=== PATIENT | male | born 1940 | race Caucasian/White ===

== ENCOUNTER → 2016-10-20 | Outpatient (CLI) | payer MEDICARE, OTHER ==
--- NOTE | 2016-10-20 16:36 | XCELERA REPORT ---
[address] [address] Lower Extremity Arterial Evaluation Name: SONALI HUTTON Age: 76 yrs Gender: Male : 1940 Patient Status: Preadmit Patient Location: Study Date: 10/20/2016 08:00 AM Procedure: A color flow and duplex scan of the lower extremity arteries was performed bilaterally with velocity and waveform anaylsis. Ankle brachial indicies performed. Reason For Study: PVD Ordering Physician: BEATRICE STANLEY Performed By: Val Douglas Measurements and Calculations Right Left WRAP CHECKER PSV 61.3 74.3 cm/sec Prox PFA PSV -44.0 46.0 cm/sec Prox SFA PSV 103.7 82.1 cm/sec Mid SFA PSV -87.7 -72.7 cm/sec Dist SFA PSV -78.6 -77.8 cm/sec Prox Pop A PSV 40.4 57.0 cm/sec Dist CAROLA PSV 17.5 38.7 cm/sec Dist PHOTOENGRAVING PROOFER APPRENTICE PSV 51.9 -49.9 cm/sec Oswaldo Pedis PSV 27.4 80.5 cm/sec Right Side Arterial Evaluation Normal velocity and biphasic waveforms noted from the Common Femoral artery to the infrageniculate vessels. Biphasic in the Deep Femoral artery. 0-19% stenosis at the Deep Femoral. Ankle Brachial index was not obtainable, non compressible. Left Side Arterial Evaluation Normal velocity and biphasic waveforms noted from the Common Femoral artery to the interior Tibial artery. Biphasic in the Deep Femoral artery. 0-19% stenosis at the Deep Femoral., and Posterior Tibial artery. Ankle Brachial index was not obtainable, non compressible. Interpretation Summary Mild hemodynamically significant lesions in the bilateral lower extremities, on duplex imaging, at rest. : BEATRICE STANLEY > Beatrice Stanley
== END ==
LOC: SP 07:17
PROVIDERS: ATTEND Surgery
DX: I73.9 Peripheral vascular disease, unspecified (principal)
CPT/HCPCS: 93925

== ENCOUNTER 2017-04-10 08:19 | Observation (INO) | payer MEDICARE, OTHER ==
[2017-04-10] MEDS ORDERED: ADENOSINE INJ/PF 6 MG/2 ML SDV IV ONE ×3 (08:30→08:42)
[2017-04-10] MEDS ORDERED: ASPIRIN 81 MG TABLET, CHEWABLE PO ONE (08:42)
[2017-04-10] MEDS ORDERED: NORMAL SALINE 1000 ML 1,000 ML IV ONE (08:43)
[2017-04-10 08:55] LABS: ABSOLUTE EOSINOPHILS # (AUTO) 0.1 10^3/uL (0.0-0.6); ABSOLUTE MONOCYTES (AUTO) 0.6 10^3/uL (0.1-1.4); ABSOLUTE NEUT (AUTO) 2.3 10^3/uL (1.7-8.2); BASOPHILS % (AUTO) 0.5 % (0-2); EOSINOPHILS % (AUTO) 1.8 % (0-6); HEMATOCRIT 42.8 % (37.9-51.0); HEMOGLOBIN 14.4 g/dL (13.5-17.0); HGB HCT DIFFERENCE 0.4; LYMPHOCYTES % (AUTO) 49.9 % (13-45); MEAN CORPUSCULAR HEMOGLOBIN 31.3 pg (27.0-33.4); MEAN CORPUSCULAR HGB CONC 33.6 g/dL (32.0-36.0); MEAN CORPUSCULAR VOLUME 93 fl (80-97); MONOCYTES % (AUTO) 9.2 % (3-13); RED CELL DISTRIBUTION WIDTH 13.8 % (11.5-14.0); SEGMENTED NEUTROPHILS % (AUTO) 38.6 % (42-78)
[2017-04-10 09:08] LABS: PROTHROMBIN TIME 12.4 SEC (11.4-15.4)
[2017-04-10 09:13] LABS: ALANINE AMINOTRANSFERASE 38 U/L (21-72); ALBUMIN 4.2 g/dL (3.5-5.0); ALKALINE PHOSPHATASE 75 U/L (38-126); ANION GAP 14 (5-19); ASPARTATE AMINO TRANSFERASE 30 U/L (17-59); BILIRUBIN,DIRECT 0.4 mg/dL (0.0-0.4); BILIRUBIN,TOTAL 0.9 mg/dL (0.2-1.3); BLOOD UREA NITROGEN 14 mg/dL (7-20); CALCIUM 9.7 mg/dL (8.4-10.2); CARBON DIOXIDE 24 mmol/L (22-30); CHLORIDE 105 mmol/L (98-107); CREATINE KINASE 240 U/L (55-170); CREATININE RESULT 1.15 mg/dL (0.52-1.25); GLUCOSE 154 mg/dL (75-110); MAGNESIUM 1.9 mg/dL (1.6-2.3); POTASSIUM 4.1 mmol/L (3.6-5.0); TOTAL PROTEIN 6.9 g/dL (6.3-8.2)
[2017-04-10 09:24] LABS: CREATINE KINASE MB 3.43 ng/mL (<4.55); TROPONIN I < 0.012 ng/mL
--- NOTE | 2017-04-10 09:24 | RADIOLOGY REPORT (SQ) ---
EXAM DESCRIPTION: CHEST SINGLE VIEW COMPLETED DATE/TIME: 04/10/2017 8:57 am REASON FOR STUDY: svt COMPARISON: 03/27/2014, 03/13/2014 EXAM PARAMETERS: NUMBER OF VIEWS: One view. TECHNIQUE: Single frontal radiographic view of the chest acquired. RADIATION DOSE: NA LIMITATIONS: None. FINDINGS: LUNGS AND PLEURA: No opacities, masses or pneumothorax. No pleural effusion. MEDIASTINUM AND HILAR STRUCTURES: No masses. Contour normal. HEART AND VASCULAR STRUCTURES: Heart normal in size. Normal vasculature. BONES: No acute findings. HARDWARE: None in the chest. OTHER: No other significant finding. IMPRESSION: NO ACUTE RADIOGRAPHIC FINDING IN THE CHEST. TECHNICAL DOCUMENTATION: JOB ID: [id number] [employer]- All Rights Reserved
--- NOTE | 2017-04-10 10:17 | ER Document Report ---
ED General - General Chief Complaint: Chest Pain Stated Complaint: CHEST PAIN Time Seen by Provider: 04/10/17 08:42 TRAVEL OUTSIDE OF THE [place] IN LAST 30 DAYS: No - HPI Patient complains to provider of: Chest pain palpitations Notes: Patient coming in today for acute onset of chest pain and palpitations. Patient states he was in his bathroom bent over felt lightheaded dizzy almost passed out and now is having significant chest pressure. Patient was found to be in SVT in triage and brought straight back. Upon my evaluation patient states episode of chest pain 1 week ago went to his PCP had an EKG done was negative. Otherwise patient states history of hypertension no other significant medical history states he is on on one blood pressure medication. Patient denies any recent travel denies any shortness of breath. is at bedside confirms patient's information. Denies fevers chills nausea vomiting diarrhea - Related Data Allergies/Adverse Reactions: No Known Drug Allergies Allergy (Verified 03/13/14 18:50) Fire Ants Allergy (Severe, Uncoded 03/13/14 18:50) Syncope Home Medications: Current Home Medications Pravastatin Sodium 40 mg PO DAILY 04/10/17 [History] Past Medical History - Social History Smoking Status: Never Smoker Frequency of alcohol use: Daily beer, 2-6 Drug Abuse: None Family History: Reviewed & Not Pertinent - Past Medical History Cardiac Medical History: Reports: Hx Hypercholesterolemia Denies: Hx Coronary Artery Disease, Hx Heart Attack, Hx Hypertension Pulmonary Medical History: Denies: Hx Asthma, Hx Bronchitis, Hx COPD, Hx Pneumonia Neurological Medical History: Denies: Hx Cerebrovascular Accident, Hx Seizures Musculoskeltal Medical History: Reports Hx Arthritis - gout no current medication Past Surgical History: Reports: Hx Abdominal Surgery - hernia repair, Hx Herniorrhaphy - Twice, Hx Orthopedic Surgery - hip replacement - Immunizations Hx Diphtheria, Pertussis, Tetanus Vaccination: Yes Hx Pneumococcal Vaccination: 03/15/14 Review of Systems - Review of Systems Constitutional: No symptoms reported EENT: No symptoms reported Cardiovascular: Chest pain Respiratory: No symptoms reported Gastrointestinal: No symptoms reported Genitourinary: No symptoms reported Male Genitourinary: No symptoms reported Musculoskeletal: No symptoms reported Skin: No symptoms reported Hematologic/Lymphatic: No symptoms reported Neurological/Psychological: No symptoms reported -: Yes All other systems reviewed and negative Physical Exam - Vital signs Vitals: Resp BP Pulse Ox 24 H 138/98 H 97 04/10/17 08:30 04/10/17 08:30 04/10/17 08:30 Interpretation: Normal - General General appearance: Appears well, Alert - HEENT Head: Normocephalic, Atraumatic Eyes: Normal Pupils: PERRL - Respiratory Respiratory status: No respiratory distress Chest status: Nontender Breath sounds: Normal Chest palpation: Normal - Cardiovascular Rhythm: Tachycardia Heart sounds: Normal auscultation Murmur: No - Abdominal Inspection: Normal Distension: No distension Bowel sounds: Normal Tenderness: Nontender Organomegaly: No organomegaly - Back Back: Normal, Nontender - Extremities General upper extremity: Normal inspection, Nontender, Normal color, Normal ROM , Normal temperature General lower extremity: Normal inspection, Nontender, Normal color, Normal ROM , Normal temperature, Normal weight bearing. No: Debbie's sign - Neurological Neuro grossly intact: Yes Cognition: Normal Orientation: AAOx4 Miladis Coma Scale Eye Opening: Spontaneous Miladis Coma Scale Verbal: Oriented Miladis Coma Scale Motor: Obeys Commands Miladis Coma Scale Total: 15 Speech: Normal Motor strength normal: LUE, RUE, LLE, RLE Sensory: Normal - Psychological Associated symptoms: Normal affect, Normal mood - Skin Skin Temperature: Warm Skin Moisture: Dry Skin Color: Normal Course - Re-evaluation Re-evalutation: 04/10/17 16:02 Patient coming in for evaluation of palpitations and chest pain. Patient was found to be in SVT vagal maneuvers were not successful in relieving the SVT therefore adenosine was given 6 then 12 are resolution of SVT. Laboratory studies not show any significant pathology EKG showed improvement of ST segment depressions. Discussed with the hospitalist will admit patient for further evaluation - Vital Signs Vital signs: Temp Pulse Resp BP Pulse Ox 97.8 F 77 18 137/79 H 98 04/10/17 11:36 04/10/17 14:00 04/10/17 11:36 04/10/17 11:36 04/10/17 11:36 - Laboratory Result Diagrams: 04/10/17 08:30 04/10/17 08:30 Laboratory results interpreted by me: 04/10/17 04/10/17 04/10/17 08:30 08:30 08:30 Seg Neutrophils % 38.6 L Lymphocytes % 49.9 H Glucose 154 H Creatine Kinase 240 H TSH 0.20 L Critical Care Note - Critical Care Note Total time excluding time spent on procedures (mins): 35 Comments: Multiple evaluation patient with SVT Discharge - Discharge Clinical Impression: SVT (supraventricular tachycardia), Near syncope Chest pain Qualifiers: Chest pain type: unspecified Qualified Code(s): R07.9 - Chest pain, unspecified Condition: Good Disposition: ADMITTED OBSERVATION Admitting Provider: Hospitalist - [facility] Admitted: Telemetry
[2017-04-10] MEDS ORDERED: NITROGLYCERIN 0.4 MG/TAB 25 TAB/BOTTLE SL PRN (10:43)
[2017-04-10 10:58] LABS: THYROID STIMULATING HORMONE 0.2 uIU/mL (0.47-4.68)
[2017-04-10] MEDS ORDERED: METOPROLOL SUCCINATE 25 MG TAB.SR.24H PO ONE (12:00)
--- NOTE | 2017-04-10 14:56 | EKG REPORT ---
SEVERITY:- ABNORMAL ECG - SUPRAVENTRICULAR TACHYCARDIA BORDERLINE LEFT AXIS DEVIATION REPOLARIZATION ABNORMALITY, PROB RATE RELATED VS ISCHEMIC : Confirmed by: Honey Ledezma 10-Apr-2017 14:55:59
--- NOTE | 2017-04-10 14:56 | EKG REPORT ---
SEVERITY:- ABNORMAL ECG - SINUS TACHYCARDIA BORDERLINE LEFT AXIS DEVIATION REPOL ABNRM SUGGESTS ISCHEMIA, DIFFUSE LEADS : Confirmed by: Honey Ledezma 10-Apr-2017 14:55:27
--- NOTE | 2017-04-11 04:42 | CONSULTATION REPORT E ---
Consultation Report NAME: SONALI HUTTON : 1940 AGE: 76Y DATE: 04/10/2017 537 A TO: BRIAN PALM M.D. FROM: AVI KINNEY M.D. Requesting Physician REASON FOR ADMISSION: Patient with chest pain/tightness, shortness of breath, and SVT. HISTORY OF PRESENT ILLNESS: The patient is a 76-year-old male with only a known history of hyperlipidemia on medication for this, states that this morning he went up to make his bed, at which time he felt dizzy and he did not feel well. He came down and had coffee and two toasts. Subsequently the patient had sudden onset of tightness in the lower front of chest and with shortness of breath, which the patient states he had difficulty taking a deep breath. This continued, the patient came the emergency room. He was found to be in SVT with a heart rate in excess of 179 beats per minute. He was given adenosine 6 mg IV push with no effect, and subsequently with 12 mg of IV adenosine the patient converted to sinus tachycardia, and then at present he is in sinus rhythm. After he converted, there is no chest tightness/shortness of breath. The patient states about a week or 2 weeks ago he had some chest pain in the left front of the chest, and it lasted for at least a day and a half, and he thought that this was due to some strenuous work that he did the previous day, and it sounds noncardiac and musculoskeletal. He denies any palpitations. He was not aware of his SVT, even though the heart rate was very high. He denies any PND, orthopnea, or leg edema. There are no TIA or CVA symptoms. PAST MEDICAL HISTORY: Positive for: 1. A history of hyperlipidemia. 2. There is no history of hypertension. No history of diabetes mellitus. No history of thyroid disease. No history of TIA or CVA. No history of anxiety or depression. There is no history of chronic kidney disease. PAST SURGICAL HISTORY: Positive for: 1. Right hip replacement. 2. Bilateral inguinal hernia. 3. And bilateral cataracts. FAMILY HISTORY: Positive for coronary artery disease and [place] in his mother. SOCIAL HISTORY: The patient does not smoke. There is no history of EtOH abuse. ADVANCED DIRECTIVES: His is a FULL CODE. His is his surrogate healthcare decision maker. MEDICATIONS: His medications include; his is on: 1. Aspirin 324 mg p.o. x1 and 81 mg p.o. daily. 2. Normal saline at 150 mL per hour. 3. Toprol XL 25 mg p.o. x1 and 25 mg p.o. daily. 4. Nitroglycerin 0.4 mg 1 tablet sublingual every 5 minutes p.r.n. REVIEW OF SYSTEMS: CONSTITUTIONAL: Denies any fevers, chills, or rigors. HEAD: No history of headaches or head injury. No dizziness. EYES: No history of amblyopia or diplopia. No history of amaurosis fugax. EARS: No history of hearing loss. No history of tinnitus. No history of recurrent ear infections. NOSE: No history of nosebleeds. No history of nasal polyps. No history of hay fever. MOUTH: No history of altered taste sensation. No history of ulcers in the mouth. No history of bleeding from the gums. THROAT: There is no odynophagia or dysphagia. There is no recurrent sore throat. SKIN: There is no pruritus. There is no yellowish discoloration of the skin. There is no psoriasis. There is no skin cancer. NECK: No neck pain. No symptoms of C-spine arthritis. No goiter. No lymphadenopathy. LUNGS: No history of asthma or COPD. No history of wheezing. No history of cough or sputum production. No history of pulmonary embolism. No history of pleuritic chest pain. No history of hemoptysis. CARDIAC: No history of coronary artery disease, GA, or anginal symptoms. No history of congestive heart failure. History of hyperlipidemia present. No history of leg edema. No history of syncope, near syncope, or dizziness. MUSCULOSKELETAL: No history of arthritis or collagen vascular disease. ENDOCRINE: No history of diabetes mellitus. No history of thyroid disease. No history of polydipsia or polyuria. No history of heat or cold intolerance. RENAL: No history of chronic kidney disease. No symptoms of UTI. No hematuria, pyuria, or dysuria. No symptoms of enlarged prostate. CENTRAL NERVOUS SYSTEM: No history of TIA or CVA. No history of seizures, headaches, or migraines. No history of gait imbalance. PSYCHIATRIC: No history of anxiety or depression. No history of suicidal ideation. No history of homicidal ideation. VASCULAR: No history of calf or buttock claudication. No history of DVT. HEMATOLOGICAL: No history of bleeding diathesis. No history of clotting disorders. PHYSICAL EXAMINATION: GENERAL: The patient is well built and well nourished, at present in no acute distress. VITAL SIGNS: He is afebrile with a temperature of 97.8 degrees Fahrenheit. Pulse is 76 beats per minute. Blood pressure is 137/79. Respirations are 18 per minute. O2 saturations are 98% on room air. HEAD: Atraumatic/normocephalic. EYES: Pupils are equal, round, regular, reactive to light/accommodation. Extraocular movements are normal. There is no conjunctival pallor. There is no scleral icterus. EAR: Tympanic membranes are intact. External auditory canals are clear. There are no lesions of the pinnae. NOSE: There is no deviated nasal septum. There is no inflammation of the nasal mucous membranes. MOUTH: The mucous membranes of the mouth are moist. Tongue is moist. There are no ulcers. There is no bleeding from the gums. THROAT: There is no redness of the oropharynx. There are no exudates. SKIN: There are no skin rashes. There are no petechia or ecchymoses. There are no skin lesions. NECK: Supple. There is no JVD. Carotids are equal. There is no bruit. There is no lymphadenopathy. There is no goiter. Trachea is central. LUNGS: Clear to auscultation and percussion. There is no chest wall tenderness. HEART: S1, S2 are heard. There is no S3 gallop. There is no S4 gallop. There is a systolic murmur in the left sternal border and the apex. There is no rub. ABDOMEN: Soft, nontender. There is no hepatosplenomegaly. Bowel sounds are well heard. EXTREMITIES: Femorals are well felt. There are no femoral bruits. Leg pulses are well felt. There is no pedal edema. There is no DVT or cellulitis. There is no cyanosis or clubbing. There is no calf tenderness. CENTRAL NERVOUS SYSTEM: The patient is conscious, awake, alert, oriented x3 with no focal deficit. PSYCHIATRIC: The patient's judgement and insight are intact. His affect is normal. DIAGNOSTIC DATA: The patient's initial EKG shows the premature ventricular tachycardia, repolarization abnormality related to rate versus ischemia. His heart rate was 179. Subsequent to the second dose of adenosine, his EKG shows a sinus rhythm, borderline left axis deviation, repolarization abnormality, ischemia diffusely. His chest x-ray is negative. I have reviewed the EKG and chest x-ray myself. The patient's sodium is 143.0, potassium 4.1, chloride 105, CO2 is 24, BUN is 14, creatinine is 1.15, GFR is greater than 60, glucose is 154, calcium is 9.7, magnesium is 1.9. The patient's liver function tests are normal. The patient's CK is 240 with a negative CPK-MB of 3.43. His first set of troponin-I is less than 0.012, and hence negative. His total protein is 6.9. Albumin is 4.2. His TSH is 0.20. Free T4 is 1.14. His D-dimer is 0.30. His PT is 12.4. His INR is 0.87. The patient's white count is 6,000, his hemoglobin is 14.4, hematocrit is 42.8, and his platelet count is 237,000. IMPRESSION: 1. SVT, terminated with adenosine, most likely AV maikol re-entry tachycardia. 2. Chest pain/tightness, resolved with the patient's SVT being terminated. The first set of cardiac enzymes are negative. 3. Shortness of breath, most likely secondary to increased heart rate. A chest x-ray is negative, and D-dimer is less than 0.030. 4. Abnormal EKG, still with evidence of ischemia by EKG. 5. Hyperlipidemia. 6. Multiple CAD risk factors; namely age, hyperlipidemia, and family history of coronary artery disease. RECOMMENDATIONS: Continue the patient on beta devin. Continue aspirin. Will get serial EKGs and enzymes, and if the cardiac enzymes are negative, we will schedule the patient for IV Lexiscan cardiac stress test in the a.m. Also, we will check an echocardiogram. All of the above discussed with the patient and the patient's in detail. His medications have been reviewed. Note, the patient was seen around 8:45 a.m. and 50 minutes spent on this patient with more than 50% of the time spent on direct patient care, also discussed with the other caregiving providers on the case. Medical decision making is of highly complex nature in view of the need for further workup of the patient's presence or absence of coronary artery disease and also abnormal EKG, although the first set of cardiac enzymes are negative. We will recheck the patient's EKG in the a.m. and also recheck the patient's troponin-I in the a.m. I will follow with you. DICTATING PHYSICIAN: BRIAN PALM M.D. [id number] PHY#: [id number] ID: [id number] JOB#: [id number] ACCT: [id number] cc:BRIAN PALM M.D. >
[2017-04-11 04:58] LABS: CHOLESTEROL 160.02 mg/dL (0-200); Direct HDL 58 mg/dL (>40); TRIGLYCERIDES 134 mg/dL (<150)
[2017-04-11] MEDS ORDERED: REGADENOSON INJ 0.4 MG/5 ML DISP.SYRIN IV ONE (05:00)
[2017-04-11 05:09] LABS: DIRECT LDL 79 mg/dL (<100)
--- NOTE | 2017-04-11 09:22 | CONSULTATION REPORT E ---
Consultation Report NAME: SONALI HUTTON : 1940 AGE: 76Y DATE: 04/10/2017 537 A TO: BRIAN PALM M.D. FROM: AVI KINNEY M.D. Requesting Physician REASON FOR CONSULTATION: Patient with chest pain, shortness of breath, and SVT. HISTORY OF PRESENT ILLNESS: Patient is a 67-year-old male with a known history of hyperlipidemia with no other medical problems, states that this morning he went up and made his bed, at which time the patient states he had some dizziness and did not feel right and did not feel well. He came down, had some coffee, and subsequently had some sudden onset of chest tightness in the center of the chest with shortness of breath with difficulty taking a deep breath. This lasted for some time, and he came to the emergency room, where he was found to be in SVT at a rate of 179 beats per minute. He was given adenosine 6 mg with no effect, and subsequently with 12 mg of adenosine, the patient converted to sinus rhythm. At present, the patient denies any chest pain or discomfort. There is no shortness of breath. He states that about 1 to 2 weeks ago he had chest pain which lasted the whole day and the next day. This seemed to be more musculoskeletal. He has not had a stress test. He denies any PND, orthopnea, or arrhythmias. He has no history of TIA or CVA. PAST MEDICAL HISTORY: Positive for: 1. Bilateral inguinal hernia surgery. 2. Bilateral hip replacement. 3. Bilateral cataract surgeries. ALLERGIES: The patient has none known allergies. SOCIAL HISTORY: The patient does not smoke. There is no history of EtOH abuse. FAMILY HISTORY: Positive for coronary artery disease and [place] in his brother. ADVANCED DIRECTIVES: The patient is a FULL CODE. His is the surrogate healthcare decision maker. DICTATING PHYSICIAN: BRIAN PALM M.D. [id number] PHY#: [id number] ID: [id number] JOB#: [id number] ACCT: [id number] cc:BRIAN PALM M.D. >
[2017-04-11] MEDS ORDERED: METOPROLOL SUCCINATE 25 MG TAB.SR.24H PO SCH (10:00)
[2017-04-11] MEDS ORDERED: ASPIRIN 81 MG TABLET, ENT COATED PO SCH (10:00)
[2017-04-11 11:54] VITALS: BP 124/58
--- NOTE | 2017-04-11 19:02 | DRAGON STRESS TEST REPORT ---
Intravenous Lexiscan Cardiolite stress test using single photon emmision computerized tomography. Date of procedure: 04/11/2017. Ordering Provider: Dr. Natasha Elliott. Patient's status: In Patient Indication: Chest pain /tightness, shortness of breath and SVT. Coronary risk factors: Age, hyperlipidemia, and family history of coronary artery disease Resting EKG: Sinus Rhythm. Within Normal Limits. Stress EKG: No changes of ischemia. The patient had no chest pain or discomfort, and there were no arrhythmias seen. Reason for termination: Protocol. Conclusions: Normal EKG and hemodynamic response to IV Lexiscan. Nuclear data: At rest the patient was given 10.23 millicuries of technetium 99m sestamibi injected intravenously. As per protocol rest non gated SPECT images were obtained. Subsequently the patient was given intravenous Lexiscan at a dose of 0.4 mg in 5 mL intravenously, followed by flush with normal saline. Subsequently the stress dose of 35.0 millicuries of technetium 99m sestamibi was injected intravenously. As per protocol stress gated images were obtained. Nuclear interpretation: Review of images showed that this is a poor quality study with motion artifact and bowel contamination artifact of the inferior wall. In spite of this all segments of the myocardium had normal perfusion at rest, and normal perfusion post stress with IV Lexiscan. All segments of the myocardium had normal motion, contraction, and thickening by gated study. T. I D. ratio was normal at 1.00. Computer read rest, and stress left ventricular ejection fraction were 49 %, and 47 %, respectively. Visually both the stress and rest ejection fractions were normal, and greater than 55%. Conclusion: 1. There is no scintigraphic evidence of Lexiscan induced myocardial ischemia. 2. There is no scintigraphic evidence of myocardial infarction/scar. 3. Check echo for LV ejection fraction correlation. Recommendations: Aggressive risk factor modification, and treating the underlying co- morbidities. MTDD
--- NOTE | 2017-04-11 23:37 | PROGRESS NOTE E ---
Progress Note NAME: SONALI HUTTON : 1940 AGE: 76Y DATE: 04/11/2017 ROOM: 537 SUBJECTIVE: The patient denies any further chest pain or discomfort. There is no chest tightness. There is no PND or orthopnea. There is no further recurrence of SVT. There is no syncope or near syncope. He remains in sinus rhythm. OBJECTIVE: GENERAL: The patient is well-built and well-nourished in no acute distress. VITAL SIGNS: He is afebrile with a temperature of 97.5 degrees Fahrenheit. Pulse is 69 beats/minute. Blood pressure 124/58. Respirations are 18 per minute. O2 sats are 99% on room air. HEENT: Head is normocephalic, atraumatic. Eyes: Pupils are equal, round, regular, reactive to light and accommodation. Extraocular movements are normal. There is no conjunctival pallor. There is no scleral icterus. Ears: Tympanic membranes are intact. External auditory canals are clear. There are no lesions in the pinna. ENT is negative. NECK: Supple. There is no JVD. Carotids are equal. There is no bruit. There is no goiter. There is no lymphadenopathy. Trachea is central. LUNGS: Clear to auscultation and percussion. CHEST: There is no chest wall tenderness. HEART: S1/S2 is heard. There is no S3 gallop. There is no S4 gallop. There is a systolic murmur in the left sternal border and the apex. There is no rub. ABDOMEN: Soft and nontender. There is no hepatosplenomegaly. Bowel sounds are well heard. EXTREMITIES: Femorals are well felt. There are no femoral bruits. Leg pulses are well felt. There is no pedal edema. There is no DVT or cellulitis. There is no cyanosis or clubbing. There is no calf tenderness. PRIZE FIGHTER: The patient is conscious, awake, alert, oriented x3 with no focal deficits. PSYCHIATRIC: The patient's judgment and insight are intact. His affect is normal. DIAGNOSTICS: Note that the patient underwent an IV Lexiscan Cardiolite stress test this morning and he had no chest pain or discomfort. There is no EKG changes. It is a difficult study to interpret due to motion artifact and bowel contamination artifact of the inferior wall. In spite of this, all segments of the myocardium was normal perfusion with rest and normal perfusion post stress with Lexiscan. All segments of the myocardium are normal. Motion, contraction and thickening for gated study. The computed ejection fraction at rest was 49% and stress was 47%. Visually the LV ejection fraction was greater than 55%. This has been discussed with the patient. The patient's hemoglobin A1c is 5.6. His triglycerides are 134. His LDL cholesterol is 79 and his HDL cholesterol is good at 58. IMPRESSION: 1. SUPRAVENTRICULAR TACHYCARDIA, TERMINATED WITH *------* NO RECURRENCE. 2. CHEST PAIN, TIGHTNESS, MOST LIKELY NONCARDIAC, MOST LIKELY SECONDARY TO SVT. THE PATIENT'S STRESS TEST HAS BEEN NEGATIVE. 3. SHORTNESS OF BREATH, RESOLVED POST SVT. MOST LIKELY SVT IS THE CAUSE OF THIS. 4. ABNORMAL EKG. At present today the EKG after stress test was within normal limits. 5. HYPERLIPIDEMIA. RECOMMENDATIONS: In view of the patient's stress test showing an ejection fraction of 49% at rest and 47% with exertion, we will check an echocardiogram for LV ejection fraction correlation. Note, will followup the patient in the office. 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 Also, we will get an echocardiogram for LV ejection fraction correlation. His medications are being reviewed. Continue beta-devin. Continue his RESHMA inhibitor. Continue anti-lipid medication. Continue his other medication. Continue his amlodipine. Continue aspirin. The patient has been given my telephone number. He will call me if there are any problems. We will followup the patient in the office. We will arrange for a 30 day Event monitor. His medications have been reviewed. Discussed the stress test with the patient and with the other caregiving providers on the case. We will discharge the patient and we will have the patient followup in the office. The patient has been given my cell phone number. Note in spite of negative stress test, the medical decision-making is of moderate complexity. DICTATING PHYSICIAN: BRIAN PALM M.D. [id number] PHY#: [id number] ID: [id number] JOB#: [id number] ACCT: [id number] cc: >
[2017-04-12] MEDS ORDERED: ASPIRIN 81 MG TABLET, ENT COATED PO SCH (10:00)
--- NOTE | 2017-04-17 22:44 | PDOC H&P ---
History of Present Illness Admission Date/PCP: 04/10/17 10:43 DYANA PETERS MD Patient complains of: SOB History of Present Illness: SONALI HUTTON is a 76 year old male who states that he had been battling a cold earlier this week but was otherwise dong well. . Patient states he woke up at 6 am and fed the dogs. He ate breakfast then went upstairs to make the bed. He bent over and then stood up. When he stood up he became dizzy. He could not catch his breathe. He didn't feel well, so he came to the ED. He was found to have a HR in the 200s. Patient states that in March, he had and episode of chest pain. He went to see Dr. Delacruz at that time. Patient states that his evaluation was negative at that time. Patient denies any history of AK. Patient was given adenosine x 2 in the ED. BMP and CHM unremarkable. Hospitalist called to bring patient in for Observation for ACS rule out and cardiology evaluation. Past Medical History Cardiac Medical History: Reports: Hyperlipidema Denies: Coronary Artery Disease, Myocardial Infarction, Hypertension Pulmonary Medical History: Denies: Asthma, Bronchitis, Chronic Obstructive Pulmonary Disease (COPD), Pneumonia Neurological Medical History: Denies: Seizures Musculoskeltal Medical History: Reports: Arthritis - gout no current medication Psychiatric Medical History: Denies: Depression Hematology: Denies: Anemia Past Surgical History Past Surgical History: Reports: Herniorrhaphy - Twice, Orthopedic Surgery - hip replacement Social History Smoking Status: Never Smoker Frequency of Alcohol Use: Occasional Hx Recreational Drug Use: No Drugs: None Hx Prescription Drug Abuse: No - Advance Directive Resuscitation Status: Full Code Family History Family History: Malignancy Parental Family History Reviewed: Yes Children Family History Reviewed: Yes Sibling(s) Family History Reviewed.: Yes Medication/Allergy Home Medications: Pravastatin Sodium 40 mg PO DAILY 04/10/17 Metoprolol Succinate [Toprol Xl 25 mg Tab.sr] 25 mg PO DAILY 30 Days #30 tab.sr.24h 04/11/17 Allergies/Adverse Reactions: No Known Drug Allergies Allergy (Verified 03/13/14 18:50) Fire Ants Allergy (Severe, Uncoded 03/13/14 18:50) Syncope Review of Systems Constitutional: ABSENT: chills, fever(s), headache(s), weight gain, weight loss Eyes: ABSENT: visual disturbances Ears: ABSENT: hearing changes Cardiovascular: ABSENT: chest pain, dyspnea on exertion, edema, orthropnea, palpitations Respiratory: PRESENT: dyspnea. ABSENT: cough, hemoptysis Gastrointestinal: ABSENT: abdominal pain, constipation, diarrhea, hematemesis, hematochezia, nausea, vomiting Genitourinary: ABSENT: dysuria, hematuria Musculoskeletal: PRESENT: other - calve pain. ABSENT: joint swelling Integumentary: ABSENT: rash, wounds Neurological: ABSENT: abnormal gait, abnormal speech, confusion, dizziness, focal weakness, syncope Psychiatric: ABSENT: anxiety, depression, homidical ideation, suicidal ideation Endocrine: ABSENT: cold intolerance, heat intolerance, polydipsia, polyuria Hematologic/Lymphatic: ABSENT: easy bleeding, easy bruising Physical Exam Vital Signs: Vitals Temp: 97.8 Pulse 59 BP 118/71 RR 15 Pulse ox 97 room air General appearance: PRESENT: no acute distress, well-developed, well-nourished Head exam: PRESENT: normocephalic Eye exam: PRESENT: EOMI. ABSENT: scleral icterus Ear exam: PRESENT: normal external ear exam Mouth exam: PRESENT: moist Neck exam: ABSENT: carotid bruit, JVD, lymphadenopathy, thyromegaly Respiratory exam: PRESENT: clear to auscultation roldan. ABSENT: rales, rhonchi, wheezes Cardiovascular exam: PRESENT: RRR, +S1, +S2. ABSENT: diastolic murmur, rubs, systolic murmur Pulses: PRESENT: normal dorsalis pedis pul, other - foot cool to touch Vascular exam: PRESENT: normal capillary refill GI/Abdominal exam: PRESENT: normal bowel sounds, soft. ABSENT: distended, guarding, mass, organolmegaly, rebound, tenderness Rectal exam: PRESENT: deferred Extremities exam: PRESENT: full ROM. ABSENT: calf tenderness, clubbing, pedal edema Neurological exam: PRESENT: alert, awake, oriented to person, oriented to place , oriented to time, oriented to situation, CN II-XII grossly intact. ABSENT: motor sensory deficit Psychiatric exam: PRESENT: appropriate affect, normal mood. ABSENT: homicidal ideation, suicidal ideation Skin exam: PRESENT: dry, intact, warm. ABSENT: cyanosis, rash Results Laboratory Results: 11/05/17 11/05/17 11/05/17 12:42 15:00 20:10 Troponin I Cancelled 0.098 0.092 04/11/17 02:35 Troponin I 0.074 Impressions: Chest X-Ray 04/10/17 08:42 IMPRESSION: NO ACUTE RADIOGRAPHIC FINDING IN THE CHEST. Assessment & Plan - Diagnosis (1) SVT (supraventricular tachycardia) Is this a current diagnosis for this admission?: Yes Plan: Patient given adenosine in the ED. Patient now in NSR,but will continue on telemetry. Will continue to trend troponins. Will start patient on low dose beta devin. Will check lipids in the am. Will order Echo and consult cardiology. Patient may benefit from a ischemic work up. (2) Gout Qualifiers: Gout site: foot Is this a current diagnosis for this admission?: Yes Plan: Not acute attack noted at this time. (3) Hypercholesteremia Is this a current diagnosis for this admission?: Yes Plan: Continue statin - Time Time Spent: 30 to 50 Minutes Medications reviewed and adjusted accordingly: Yes Anticipated discharge: Home Within: within 24 hours
--- NOTE | 2017-04-17 22:51 | PDOC DISCHARGE SUMMARY ---
General - Admit/Disc Date/PCP Admission Date/Primary Care Provider: 04/10/17 10:43 DYANA PETERS MD Discharge Date: 04/11/17 - Discharge Diagnosis (1) SVT (supraventricular tachycardia) Is this a current diagnosis for this admission?: Yes (2) Gout Is this a current diagnosis for this admission?: Yes (3) Hypercholesteremia Is this a current diagnosis for this admission?: Yes - Additional Information Resuscitation Status: Full Code Discharge Diet: Cardiac Discharge Activity: Activity As Tolerated, Balance Activity w/Rest Home Medications: Pravastatin Sodium 40 mg PO DAILY 04/10/17 Metoprolol Succinate [Toprol Xl 25 mg Tab.sr] 25 mg PO DAILY 30 Days #30 tab.sr.24h 04/11/17 History of Present Illness History of Present Illness: SONALI HUTTON is a 76 year old male who presented wit complaint of not being able to catch his breathe. Patient was found to be in SVT and was given adenosine x 2. Hospital Course Hospital Course: Patient presented to the ED in SVT and was given adenoside. He was later on started on a beta devin. Patient remained in NSR while being monitored on telemetry. Patient later on had a troponin leak but denied chest pain. This troponin leak was most likely due to demand ischemia during the rapid heart rate. They did trend down. Patient has a stress test which did not show any ischemia. Patient is to follow up with Dr. Eden, cardiology, and at that time a cardiac echo will be completed. Patient was continued on his statin for his hyperlipidemia. Patient has history of gout but was not have any attack. Patient remained stable and was discharge home. Physical Exam Vital Signs: Temp Pulse Resp BP Pulse Ox 97.5 F 69 18 124/58 L 99 04/11/17 13:05 04/11/17 13:05 04/11/17 13:05 04/11/17 13:05 04/11/17 13:05 General appearance: PRESENT: no acute distress, well-developed, well-nourished Head exam: PRESENT: normocephalic Eye exam: PRESENT: EOMI. ABSENT: scleral icterus Ear exam: PRESENT: normal external ear exam Mouth exam: PRESENT: moist Neck exam: ABSENT: carotid bruit, JVD, lymphadenopathy, thyromegaly Respiratory exam: PRESENT: clear to auscultation roldan. ABSENT: rales, rhonchi, wheezes Cardiovascular exam: PRESENT: RRR. ABSENT: diastolic murmur, rubs, systolic murmur Pulses: PRESENT: normal dorsalis pedis pul Vascular exam: PRESENT: normal capillary refill GI/Abdominal exam: PRESENT: normal bowel sounds, soft. ABSENT: distended, guarding, mass, organolmegaly, rebound, tenderness Rectal exam: PRESENT: deferred Extremities exam: PRESENT: full ROM. ABSENT: calf tenderness, clubbing, pedal edema Neurological exam: PRESENT: alert, awake, oriented to person, oriented to place , oriented to time, oriented to situation, CN II-XII grossly intact. ABSENT: motor sensory deficit Psychiatric exam: PRESENT: appropriate affect, normal mood. ABSENT: homicidal ideation, suicidal ideation Skin exam: PRESENT: dry, intact, warm. ABSENT: cyanosis, rash Results Laboratory Results: 04/10/17 04/10/17 04/10/17 12:42 15:00 20:10 Troponin I Cancelled 0.098 0.092 04/11/17 02:35 Troponin I 0.074 Impressions: Chest X-Ray 04/10/17 08:42 IMPRESSION: NO ACUTE RADIOGRAPHIC FINDING IN THE CHEST. Qualifiers PATEINT BEING DISCHARGED WITH ANY OF THE FOLLOWING DIAGNOSIS?: No Plan Discharge Plan: Patient will continue on beta devin and follow up with Dr. Eden on discharge for cardiac echo. Time Spent: Less than 30 Minutes
== END 2017-04-11 13:47 | disposition home or self-care (01) ==
LOC: ER 08:19 → 5 10:43 → UNDOADMOB 10:50 → EH 10:50 → 5 11:33 → EH 11:33
PROVIDERS: ADMIT Pediatrics; ATTEND Pediatrics
DX: I47.1 Supraventricular tachycardia (principal); M10.9 Gout, unspecified; E78.00 Pure hypercholesterolemia, unspecified; R94.31 Abnormal electrocardiogram [ECG] [EKG]; Z82.49 Family history of ischemic heart disease and other diseases of the circulatory system; Z96.643 Presence of artificial hip joint, bilateral; Z79.899 Other long term (current) drug therapy
CPT/HCPCS: 93005; 99285; 36415 ×2; 84439; 82553; 82550; 83735; 84443; 85025; 85610; 80053; 84484 ×2; 83036; 85379; 80061; 93017; 71010; 78452; 93010; G0378 ×3; A9500; J2785; A9270 ×2; J3490; J7030; J0153; Q9969

== ENCOUNTER 2017-12-12 01:25 | Emergency (ER) | payer MEDICARE, OTHER ==
[2017-12-12] MEDS ORDERED: MORPHINE SULFATE 10 MG/ML INJ IV ONE (01:49)
[2017-12-12 02:22] LABS: ABSOLUTE BASOPHILS # (AUTO) 0.1 10^3/uL (0.0-0.2); ABSOLUTE EOSINOPHILS # (AUTO) 0.4 10^3/uL (0.0-0.6); ABSOLUTE NEUT (AUTO) 5.5 10^3/uL (1.7-8.2); BASOPHILS % (AUTO) 0.7 % (0-2); EOSINOPHILS % (AUTO) 4.3 % (0-6); HEMATOCRIT 38.3 % (37.9-51.0); HEMOGLOBIN 13.1 g/dL (13.5-17.0); MEAN CORPUSCULAR HEMOGLOBIN 32.1 pg (27.0-33.4); MEAN CORPUSCULAR HGB CONC 34.1 g/dL (32.0-36.0); MEAN CORPUSCULAR VOLUME 94 fl (80-97); MONOCYTES % (AUTO) 11.1 % (3-13); PLATELET COUNT 242 10^3/uL (150-450); RED BLOOD COUNT 4.08 10^6/uL (4.35-5.55); SEGMENTED NEUTROPHILS % (AUTO) 61.9 % (42-78); TOTAL CELLS COUNTED % (AUTO) 100 %
[2017-12-12 02:24] LABS: ANION GAP 10 (5-19); BLOOD UREA NITROGEN 17 mg/dL (7-20); CALCIUM 9.4 mg/dL (8.4-10.2); CARBON DIOXIDE 25 mmol/L (22-30); CHLORIDE 106 mmol/L (98-107); GLUCOSE 105 mg/dL (75-110); POTASSIUM 4.4 mmol/L (3.6-5.0); SODIUM 140.5 mmol/L (137-145)
--- NOTE | 2017-12-12 02:30 | RADIOLOGY REPORT (SQ) ---
EXAM DESCRIPTION: CT abdomen and pelvis without contrast December 1:26 AM CDT CLINICAL HISTORY: 77 years, Male, left flank pain COMPARISON: CT abdomen and pelvis with contrast March 2014. TECHNIQUE: Volumetric CT acquisition was performed through the abdomen and pelvis. Images in the axial and coronal planes were presented for interpretation This exam was performed according to our departmental dose-optimization program, which includes automated exposure control, adjustment of the mA and/or kV according to patient size and/or use of iterative reconstruction technique. FINDINGS: The visualized portions of the lung bases are clear. The heart is normal in size with moderate coronary artery calcifications Within the upper abdomen, the liver and spleen are normal in size and morphology. The gallbladder is surgically absent. The intra/extrahepatic biliary tree is normal in appearance. The pancreas and adrenal glands are normal. The right kidney is normal in size and the right ureter is normal in course and caliber. There are no right renal calculi, distal obstructing stones, or evidence of hydronephrosis/hydroureter. The left kidney is normal in size and the left ureter is normal in course and caliber. There are no left renal calculi, distal obstructing stones, or evidence of hydronephrosis/hydroureter. The stomach and small intestines are within normal limits without evidence of bowel dilation or wall thickening. The appendix is well-visualized and normal, best seen on coronal image 35 inferior to the cecum. The colon is stool filled and unremarkable. There are moderate descending and sigmoid colonic diverticula without associated wall thickening or inflammatory changes. Within the pelvis, the bladder and rectum are normal. The prostate is age-appropriate There are no pathologically enlarged inguinal, retroperitoneal, portacaval, or mesenteric lymph nodes. The soft tissue structures of the abdominal wall are normal. There are multilevel degenerative changes throughout the lumbar spine most pronounced at the L4/L5 and L5/S1 levels with disc space narrowing and facet hypertrophy There is right hip arthroplasty hardware noted. The abdominal aorta and its primary branches are normal in course and caliber. Limited evaluation of the venous structures demonstrates no gross abnormalities. IMPRESSION: 1. No acute intra-abdominal process. 2. Diverticulosis without evidence of diverticulitis. 3. Status post cholecystectomy. 4. Stable right hip arthroplasty hardware. 5. Degenerative changes of the lower lumbar spine.
--- NOTE | 2017-12-12 02:44 | ER Document Report ---
ED General - General Chief Complaint: Abdominal Pain Stated Complaint: ABDOMINAL PAIN Time Seen by Provider: 12/12/17 01:43 Notes: Patient is a pleasant 77-year-old male presents with complaints of left flank pain. He says it started around 6 PM and has continued throughout the day and night. No vomiting. No fevers. No dysuria. He does have some urinary frequency which is chronic most likely related to prostate hypertrophy. No diarrhea. No blood in the stool. She still had pain like this before. He takes metoprolol for blood pressure. He is otherwise healthy. No history of kidney stones. TRAVEL OUTSIDE OF THE [place] IN LAST 30 DAYS: No - Related Data Allergies/Adverse Reactions: No Known Drug Allergies Allergy (Verified 03/13/14 18:50) Fire Ants Allergy (Severe, Uncoded 03/13/14 18:50) Syncope Past Medical History - Social History Smoking Status: Never Smoker Frequency of alcohol use: None Drug Abuse: None Family History: Malignancy - Past Medical History Cardiac Medical History: Reports: Hx Hypercholesterolemia Denies: Hx Coronary Artery Disease, Hx Heart Attack, Hx Hypertension Pulmonary Medical History: Denies: Hx Asthma, Hx Bronchitis, Hx COPD, Hx Pneumonia Neurological Medical History: Denies: Hx Cerebrovascular Accident, Hx Seizures Musculoskeltal Medical History: Reports Hx Arthritis - gout no current medication Psychiatric Medical History: Denies: Hx Depression Past Surgical History: Reports: Hx Abdominal Surgery - hernia repair, Hx Herniorrhaphy - Twice, Hx Orthopedic Surgery - hip replacement - Immunizations Hx Diphtheria, Pertussis, Tetanus Vaccination: Yes Hx Pneumococcal Vaccination: 03/15/14 Review of Systems - Review of Systems Notes: My Normal Review Basic REVIEW OF SYSTEMS: CONSTITUTIONAL : Denies fever, chills, or sweats. Denies recent illness. RESPIRATORY: Denies cough, cold, or chest congestion. Denies shortness of breath, difficulty breathing, or wheezing. GASTROINTESTINAL: Left flank pain. Denies nausea, vomiting, or diarrhea. GENITOURINARY: Denies difficulty urinating, painful urination, burning, frequency, or blood in urine. MUSCULOSKELETAL: Denies neck or back pain or joint pain or swelling. SKIN: Denies rash or skin lesions. NEUROLOGICAL: Denies altered mental status or loss of consciousness. Denies headache. Denies weakness or paralysis or loss of use of either side. Denies problems with gait or speech. Denies sensory or motor loss. ALL OTHER SYSTEMS REVIEWED AND NEGATIVE. Physical Exam - Vital signs Vitals: Temp Pulse Resp BP Pulse Ox 98.6 F 80 20 137/73 H 95 12/12/17 01:12/12/17 01:12/12/17 01:12/12/17 01:12/12/17 01:31 - Notes Notes: General Appearance: Well nourished, alert, cooperative, no acute distress, mild to moderate obvious discomfort. Vitals: reviewed, See vital signs table. Eyes: PERRL, EOMI, Conjuctiva clear Mouth: No decreasd moisture Lungs: No wheezing, No rales, No rhonci, No accessory muscle use, good air exchange bilaterally. Heart: Normal rate, Regular rythm, No murmur, no rub Abdomen: Normal BS, soft, No rigidity, No reproducible abdominal or flank tenderness to palpation., No guarding, no rebound, no abdominal masses, no organomegaly Extremities: strength 5/5 in all extremities, good pulses in all extremities, no swelling or tenderness in the extremities, no edema. Skin: warm, dry, appropriate color, no rash Neuro: speech clear, oriented x 3, normal affect, responds appropriately to questions. Course - Re-evaluation Re-evalutation: 12/15/17 06:12 Initially suspected patient had a kidney stone based on location of his pain and the fact has not made much worse with palpation. However, the patient's CT scan was negative for kidney stone. He has no signs of infection. He does not have any anterior abdominal pain to palpation. Pain likely could be secondary to like a pulled muscle. I informed patient has not 100% clear exactly what is causing his pain. Denies any signs of any life-threatening or emergent condition at this time; however, he should have a low threshold to return to ER if he has fevers, intractable pain, vomiting, or feels unwell. Patient agrees with plan will be discharged home. Dictation of this chart was performed using voice recognition software; therefore, there may be some unintended grammatical errors. - Vital Signs Vital signs: Temp Pulse Resp BP Pulse Ox 98.6 F 62 16 131/73 H 96 12/12/17 04:00 12/12/17 04:00 12/12/17 04:00 12/12/17 04:00 12/12/17 04:00 - Laboratory Result Diagrams: 12/12/17 02:03 12/12/17 02:03 Laboratory results interpreted by me: 12/12/17 12/12/17 02:03 02:45 RBC 4.08 L Hgb 13.1 L Urine Blood SMALL H Discharge - Discharge Clinical Impression: Abdominal pain Qualifiers: Abdominal location: left lower quadrant Qualified Code(s): R10.32 - Left lower quadrant pain Condition: Good Disposition: HOME, SELF-CARE Additional Instructions: The exact cause of your pain is not 100% clear. Your CT scan does not show any concerning findings. Your urine testing as well as your blood work does not show any concerning findings either. I suspect your pain could be related to a pulled muscle or pinched nerve. Even though your workup is negative I still want you to have a very low threshold to return to the ER immediately if you have worsening pain, fevers, vomiting, or change in location of pain. If you are still having pain after 24-48 hours, you must return to the ER or see your doctor immediately for reevaluation. Prescriptions: Tramadol HCl [Ultram 50 mg Tablet] 50 mg PO Q6HP PRN #12 tablet PRN Reason: Forms: Return to Work Referrals: DYANA PETERS MD [Primary Care Provider] - 12/13/17
[2017-12-12 03:08] LABS: APPEARANCE,URINE CLEAR; BILIRUBIN,URINE NEGATIVE (NEGATIVE); COLOR,URINE YELLOW; GLUCOSE, URINE NEGATIVE (NEGATIVE); KETONES,URINE NEGATIVE (NEGATIVE); LEUKOCYTE ESTERASE,URINE NEGATIVE (NEGATIVE); NITRITE,URINE NEGATIVE (NEGATIVE); PROTEIN,URINE NEGATIVE (NEGATIVE); URINE SPECIFIC GRAVITY 1.015; UROBILINOGEN,URINE NEGATIVE mg/dL (<2.0)
[2017-12-12 04:13] VITALS: BP 131/73
== END 2017-12-12 04:11 | disposition home or self-care (01) ==
LOC: ER 01:25
DX: R10.32 Left lower quadrant pain (principal); R35.0 Frequency of micturition; I10 Essential (primary) hypertension; Z79.899 Other long term (current) drug therapy
CPT/HCPCS: 99284; 96374; 36415; 85025; 80048; 81001; 76380; J2270

== ENCOUNTER 2017-12-22 17:37 | Emergency (ER) | payer MEDICARE, OTHER ==
[2017-12-22 17:42] VITALS: BP 133/58
--- NOTE | 2017-12-22 17:59 | ER Document Report ---
HPI - HPI Patient complains to provider of: Twisted left foot 2 days ago Onset: Other - 2 days ago Onset/Duration: Sudden, Worse Pain Level: 3 Context: 77-year-old male twisted his left foot and has been walking on it for 2 days. It is swollen and painful in the dorsal lateral left foot. No history of gout. Associated Symptoms: None Exacerbated by: Walking Relieved by: Denies Similar symptoms previously: No Recently seen / treated by doctor: No - ROS ROS below otherwise negative: Yes Systems Reviewed and Negative: Yes All other systems reviewed and negative - REPRODUCTIVE Reproductive: DENIES: : - MUSCULOSKELETAL Musculoskeletal: REPORTS: Extremity pain Past Medical History - General Information source: Patient - Social History Smoking Status: Unknown if Ever Smoked Frequency of alcohol use: None Drug Abuse: None Lives with: Spouse/Significant other Family History: Malignancy Patient has suicidal ideation: No Patient has homicidal ideation: No - Past Medical History Cardiac Medical History: Reports: Hx Hypercholesterolemia Musculoskeletal Medical History: Reports Hx Arthritis - gout no current medication Past Surgical History: Reports: Hx Abdominal Surgery - hernia repair, Hx Herniorrhaphy - Twice, Hx Orthopedic Surgery - hip replacement - Immunizations Hx Diphtheria, Pertussis, Tetanus Vaccination: Yes Hx Pneumococcal Vaccination: 03/15/14 Vertical Provider Document - CONSTITUTIONAL Agree With Documented VS: Yes Exam Limitations: No Limitations - INFECTION CONTROL TRAVEL OUTSIDE OF THE [place] IN LAST 30 DAYS: No - MUSCULOSKELETAL/EXTREMETIES Musculoskeletal/Extremeties: MAEW, FROM, Tender - Dorsal lateral left foot and at the base of the fifth metatarsal, Edema - [place] mildly warm, not look like cellulitis Notes: 2+ DP - NEURO Level of Consciousness: Alert Motor/Sensory: No Motor Deficit, No Sensory Deficit - DERM Integumentary: No Rash Course - Re-evaluation Re-evalutation: 12/22/17 18:53 Negative per radiologist I spoke with the radiologist that read the reading about what I was seeing on 1 that is definitely not a fracture. The amount that the patient is limping and the pain in the base of the fifth metatarsal I will have him see orthopedics for follow-up tomorrow and advised him to use the walker that he has at home. 12/22/17 18:53 - Vital Signs Vital signs: Temp Pulse Resp BP Pulse Ox 98.7 F 81 18 133/58 H 95 12/22/17 17:41 12/22/17 17:41 12/22/17 17:41 12/22/17 17:41 12/22/17 17:41 Procedures - Immobilization Left Foot Time completed: 18:56 Pre-Proc Neuro Vasc Exam: Normal Immobilizer type: Post-op shoe Performed by: PCT Post-Proc Neuro Vasc Exam: Normal Alignment checked and good: Yes Discharge - Discharge Clinical Impression: Left foot injury, Base of the fifth metatarsal tenderness Condition: Good Disposition: HOME, SELF-CARE Instructions: Post-Op Shoe ([facility]), Sprain ([facility]) Additional Instructions: Use the walker at home to get off of the foot Postop shoe Tylenol for pain Call the orthopedic doctor tomorrow morning for follow-up appointment Since she do not have any kidney problems or sores you can take 400 mg of Advil up to 3 times a day for pain Referrals: FRACISCO MARIE MD [ACTIVE STAFF] - Follow up tomorrow (call for follow up)
--- NOTE | 2017-12-22 18:32 | RADIOLOGY REPORT (SQ) ---
EXAM DESCRIPTION: FOOT LEFT COMPLETE COMPLETED DATE/TIME: 12/22/2017 6:20 pm REASON FOR STUDY: twisted 2 days ago COMPARISON: None. NUMBER OF VIEWS: Three views. TECHNIQUE: AP, lateral and oblique radiographic images acquired of the left foot. LIMITATIONS: None. FINDINGS: MINERALIZATION: Normal. BONES: No acute fracture or dislocation. No worrisome bone lesions. JOINTS: No effusions. SOFT TISSUES: No soft tissue swelling. No foreign body. OTHER: No other significant finding. IMPRESSION: NO RADIOGRAPHIC EVIDENCE OF ACUTE INJURY. TECHNICAL DOCUMENTATION: JOB ID: [id number] [id number] 2010 [employer]- All Rights Reserved Reading location - IP/workstation name: [email or web address]
== END 2017-12-22 18:58 | disposition home or self-care (01) ==
LOC: ER 17:37
DX: S99.922A Unspecified injury of left foot, initial encounter (principal); M79.672 Pain in left foot; X50.0XXA Overexertion from strenuous movement or load, initial encounter
CPT/HCPCS: 99283

== ENCOUNTER 2018-01-24 08:01 | Emergency (ER) | payer MEDICARE, OTHER ==
[2018-01-24 08:08] VITALS: BP 145/69
[2018-01-24] MEDS ORDERED: CEPHALEXIN 500 MG CAPSULE PO ONE (08:25)
--- NOTE | 2018-01-24 08:26 | ER Document Report ---
ED General - General Mode of Arrival: Ambulatory Information source: Patient <OLGA PEPE - Last Filed: 01/24/18 15:39> - General TRAVEL OUTSIDE OF THE [place] IN LAST 30 DAYS: No <MARI SANCHEZ - Last Filed: 01/24/18 15:45> - General Chief Complaint: Swelling Stated Complaint: ARM SWELLING Time Seen by Provider: 01/24/18 08:13 Notes: Patient is a 72-year-old male presenting to the emergency department complaining of left arm swelling and itchiness onset around 0000 this morning. Patient states that he woke up to his left arm itching and noticed some redness and swelling. He states he put hydrocortisone on his left arm and took 2 Benadryl but the symptoms were not relieved. Patient states that he scratched his wrist under his wrist watch band approximately 1 week ago. Patient denies any trouble breathing, fevers, pain with movement or numbness or tingling. (AFSHINOLGA JESSICA) - Related Data Allergies/Adverse Reactions: No Known Drug Allergies Allergy (Verified 03/13/14 18:50) Fire Ants Allergy (Severe, Uncoded 03/13/14 18:50) Syncope Past Medical History - General Information source: Patient - Social History Smoking Status: Never Smoker Cigarette use (# per day): No Chew tobacco use (# tins/day): No Frequency of alcohol use: Heavy - 3-4 beers a day Family History: Malignancy - Past Medical History Cardiac Medical History: Reports: Hx Hypercholesterolemia Past Surgical History: Reports: Hx Abdominal Surgery, Hx Herniorrhaphy, Hx Orthopedic Surgery <OLGA PEPE - Last Filed: 01/24/18 15:39> - Social History Family History: Malignancy - Past Medical History Cardiac Medical History: Reports: Hx Hypercholesterolemia Denies: Hx Coronary Artery Disease, Hx Heart Attack, Hx Hypertension Pulmonary Medical History: Denies: Hx Asthma, Hx Bronchitis, Hx COPD, Hx Pneumonia Neurological Medical History: Denies: Hx Cerebrovascular Accident, Hx Seizures Renal/ Medical History: Denies: Hx Peritoneal Dialysis Musculoskeletal Medical History: Reports Hx Arthritis - gout no current medication Psychiatric Medical History: Denies: Hx Depression Past Surgical History: Reports: Hx Abdominal Surgery - hernia repair, Hx Herniorrhaphy - Twice, Hx Orthopedic Surgery - hip replacement - Immunizations Hx Diphtheria, Pertussis, Tetanus Vaccination: Yes Hx Pneumococcal Vaccination: 03/15/14 <MARI SANCHEZ - Last Filed: 01/24/18 15:45> Review of Systems - Review of Systems Constitutional: No symptoms reported EENT: No symptoms reported Cardiovascular: No symptoms reported Respiratory: No symptoms reported Gastrointestinal: No symptoms reported Genitourinary: No symptoms reported Male Genitourinary: No symptoms reported Musculoskeletal: See HPI Skin: See HPI Hematologic/Lymphatic: No symptoms reported Neurological/Psychological: No symptoms reported -: Yes All other systems reviewed and negative <OLGA PEPE - Last Filed: 01/24/18 15:39> Physical Exam <OLGA PEPE - Last Filed: 01/24/18 15:39> <MARI SANCHEZ - Last Filed: 01/24/18 15:45> - Vital signs Vitals: Temp Pulse Resp BP Pulse Ox 97.9 F 71 20 145/69 H 98 01/24/18 08:06 01/24/18 08:06 01/24/18 08:06 01/24/18 08:06 01/24/18 08:06 - Notes Notes: GENERAL: Alert, interacts well. No acute distress. HEAD: Normocephalic, atraumatic. EYES: Pupils equal, round, and reactive to light. Extraocular movements intact. ENT: Oral mucosa moist, tongue midline. NECK: Full range of motion. Supple. Trachea midline. LUNGS: No respiratory distress. EXTREMITIES: Moves all 4 extremities spontaneously. Area of erythema and swelling to the dorsal aspect of left arm beginning at approximately the level of MCP joints 3 and 4 and extends proximally to approximately 3 inches below the elbow, not circumferential however it does extend to the volar aspect. Small abrasion to the dorsal aspect of left wrist under where wrist watch would lay. Not tender to palpation. FROM, no pain with ROM. Radial pulses 2/4 bilaterally. NEUROLOGICAL: Alert and oriented x3. Normal speech. PSYCH: Normal affect, normal mood. SKIN: Warm, dry. Negative Nikolsky's sign. (OLGA PEPE) Course <OLGA PEPE - Last Filed: 01/24/18 15:39> <MARI SANCHEZ - Last Filed: 01/24/18 15:45> - Re-evaluation Re-evalutation: 01/24/18 08:25 Consistent with cellulitis, patient is not a diabetic, there is no evidence of abscess, there is no evidence of necrotizing fasciitis, full range of motion and muscle strength is intact, sensation is intact. Patient will be started on Keflex and discharged home, encouraged to keep the arm elevated and return should he develop fevers or increasing erythema. (MARI SANCHEZ) - Vital Signs Vital signs: Temp Pulse Resp BP Pulse Ox 97.9 F 71 20 145/69 H 98 01/24/18 08:06 01/24/18 08:06 01/24/18 08:06 01/24/18 08:06 01/24/18 08:06 Discharge <OLGA PEPE - Last Filed: 01/24/18 15:39> <MAIR SANCHEZ - Last Filed: 01/24/18 15:45> - Discharge Clinical Impression: Left arm cellulitis Condition: Stable Disposition: HOME, SELF-CARE Additional Instructions: Cellulitis You have an infection of your skin and underlying soft tissues called cellulitis. This is due to bacteria, which can enter through any break in the skin, or even through an irritated hair follicle. Untreated, cellulitis will usually worsen. Antibiotics are required. Usually, warm packs or warm soaks, and elevation of the infected area are recommended. You should start getting better within 24 to 36 hours. Most infections respond quickly to the right medication. Follow-up care is important, however, to check for abscess (boil) formation, unsuspected foreign body, or resistant infection. If you develop fever, chills, or if the area of infection is becoming rapidly more swollen or painful, call the doctor at once. Prescriptions: Cephalexin Monohydrate [Keflex 500 mg Capsule] 500 mg PO Q6H 7 Days capsule Referrals: DYANA PETERS MD [Primary Care Provider] - Follow up as needed Scribe Attestation: 01/24/18 15:45 I personally performed the services described in the documentation, reviewed and edited the documentation which was dictated to the scribe in my presence, and it accurately records my words and actions. (MARI SANCHEZ) Scribe Documentation - Scribe Written by Rika:: Rika Sharma, 01/24/2018 09:10 acting as scribe for :: Elsa <OLGA PEPE - Last Filed: 01/24/18 15:39>
== END 2018-01-24 08:40 | disposition home or self-care (01) ==
LOC: ER 08:01
DX: L03.114 Cellulitis of left upper limb (principal); M79.89 Other specified soft tissue disorders
CPT/HCPCS: 99283; A9270

== ENCOUNTER 2018-01-25 07:36 | Emergency (ER) | payer MEDICARE, OTHER ==
--- NOTE | 2018-01-25 09:34 | ER Document Report ---
ED General - General Chief Complaint: Hand Swelling Stated Complaint: HAND SWELLING Time Seen by Provider: 01/25/18 09:23 TRAVEL OUTSIDE OF THE [place] IN LAST 30 DAYS: No - HPI Notes: Patient is a 77-year-old male no significant past medical history presents to the ED complaining of continued left forearm redness and swelling with swelling extending to the dorsal left hand x1-2 days. Patient states that he was evaluated yesterday and was placed on Keflex for cellulitis. Patient states that overall his redness has improved as it did encompass the anterior forearm as well, but is now maintained to the posterior forearm. Patient states that the swelling was primarily to his forearm, but has started to incorporate the posterior hand. Patient states he does not have any significant pain or discomfort otherwise. He has been taking his antibiotic as directed. Patient states that overall his symptoms have improved aside from the swelling to the posterior hand. He is eating and drinking without any difficulties. He is urinating normally. Denies any drug allergies. Patient states that he is scheduled to see his primary care doctor later this afternoon. Denies any headache, fever, URI, sore throat, chest pain, palpitations, syncope, cough, shortness of breath, wheeze, dyspnea, abdominal pain, nausea/vomiting/diarrhea, urinary retention, dysuria, hematuria, loss of control of bowel or bladder, numbness/tingling, saddle anesthesia, muscle paralysis/weakness. - Related Data Allergies/Adverse Reactions: No Known Drug Allergies Allergy (Verified 01/25/18 07:42) Fire Ants Allergy (Severe, Uncoded 01/25/18 07:42) Syncope Past Medical History - Social History Smoking Status: Never Smoker Chew tobacco use (# tins/day): No Frequency of alcohol use: Occasional Drug Abuse: None Family History: Malignancy Patient has suicidal ideation: No Patient has homicidal ideation: No - Past Medical History Cardiac Medical History: Reports: Hx Hypercholesterolemia Denies: Hx Coronary Artery Disease, Hx Heart Attack, Hx Hypertension Pulmonary Medical History: Denies: Hx Asthma, Hx Bronchitis, Hx COPD, Hx Pneumonia Neurological Medical History: Denies: Hx Cerebrovascular Accident, Hx Seizures Renal/ Medical History: Denies: Hx Peritoneal Dialysis Musculoskeletal Medical History: Reports Hx Arthritis - gout no current medication Psychiatric Medical History: Denies: Hx Depression Past Surgical History: Reports: Hx Abdominal Surgery - hernia repair, Hx Herniorrhaphy - Twice, Hx Orthopedic Surgery - hip replacement - Immunizations Hx Diphtheria, Pertussis, Tetanus Vaccination: Yes Hx Pneumococcal Vaccination: 03/15/14 Review of Systems - Review of Systems -: Yes All other systems reviewed and negative Physical Exam - Vital signs Vitals: Temp Pulse Resp BP Pulse Ox 98.0 F 67 16 146/77 H 98 01/25/18 07:47 01/25/18 07:47 01/25/18 07:47 01/25/18 07:47 01/25/18 07:47 - Notes Notes: PHYSICAL EXAMINATION: GENERAL: Well-appearing, well-nourished and in no acute distress. LUNGS: Breath sounds clear to auscultation bilaterally and equal. No wheezes rales or rhonchi. HEART: Regular rate and rhythm without murmurs, rubs, gallops. Musculoskeletal: left UE: FROM to passive/active. Strength 5+/5. N/v intact distal. Extremities: Peripheral pulses 2+. Capillary refill less than 3 seconds. NEUROLOGICAL: Normal speech, normal gait. Normal sensory, motor exams PSYCH: Normal mood, normal affect. SKIN: Left forearm: there is mild erythema to the posterior forearm with mild swelling noted. + trace pitting edema to the posterior left hand w/o erythema. No other induration, fluctuance, streaks, or discharge noted. Non-tender. Erythema has noted improvement from the markings placed yesterday. Course - Re-evaluation Re-evalutation: 01/25/18 10:57 Patient is an afebrile, well-hydrated, 70 7/10 to the ED with cellulitis to the left forearm which does seem to be improving from his visit yesterday. Vitals are acceptable without any significant tachycardia, tachypnea, or hypoxia. PE is otherwise unremarkable. Venous ultrasound of the left upper extremity was unremarkable for acute pathology at this time. Patient is nontoxic-appearing and is tolerating p.o. without difficulties. Low suspicion for any sepsis, meningitis, severe dehydration, respiratory compromise, DVT, or other systemic emergent condition at this time. Patient is aware that condition can change from initial presentation and he needs to monitor symptoms closely and seek medical attention with any acute changes. No other labs or imaging warranted at this time based on H&P. Patient to continue taking his Keflex as directed and to monitor symptoms closely. Erythemic borders were marked. Conservative measures otherwise for symptoms. Recheck with your PCM as scheduled later today. Return to the ED with any worsening/concerning symptoms otherwise as reviewed in discharge. Patient is in agreement. - Vital Signs Vital signs: Temp Pulse Resp BP Pulse Ox 98.0 F 67 16 146/77 H 98 01/25/18 07:47 01/25/18 07:47 01/25/18 07:47 01/25/18 07:47 01/25/18 07:47 Discharge - Discharge Clinical Impression: Cellulitis of left forearm Condition: Stable Disposition: HOME, SELF-CARE Additional Instructions: Keep the skin clean Wash with soap and water Tylenol/ibuprofen if needed Triple antibiotic ointment daily Take medication as directed Monitor for any worsening symptoms Recheck with your PCM today as scheduled Return to the ED with any worsening symptoms and/or development of fever, headache, chest pain, palpitations, syncope, shortness of breath, trouble breathing, abdominal pain, n/v/d, abscess, purulent discharge, red streaks, worsening swelling, or other worsening symptoms that are concerning to you. Forms: Elevated Blood Pressure Referrals: DYANA PETERS MD [Primary Care Provider] - 01/25/18
[2018-01-25 11:08] VITALS: BP 138/73
--- NOTE | 2018-01-25 11:13 | RADIOLOGY REPORT (SQ) ---
EXAM DESCRIPTION: VENOUS UNILATERAL UPPER COMPLETED DATE/TIME: 01/25/2018 11:05 am REASON FOR STUDY: LUQ swelling COMPARISON: None. TECHNIQUE: Dynamic and static pastor scale and color images acquired of the left arm venous system. Se lected spectral images acquired with additional compression and augmentation maneuvers. The contralat eral subclavian vein and internal jugular vein were also imaged. Images stored on PACS. LIMITATIONS: None. FINDINGS: INTERNAL JUGULAR VEIN: Normal phasicity, compression, augmentation. No visualized echogeni c material on pastor scale. No defects on color images. Comparison opposite side normal. SUBCLAVIAN VEIN: Normal compression, augmentation. No visualized echogenic material on pastor scale. No defects on color images. AXILLARY VEIN: Normal compression, augmentation. No visualized echogenic material on pastor scale. No d efects on color images. BRACHIAL VEIN: Normal compression, augmentation. No visualized echogenic material on pastor scale. No d efects on color images. BASILIC VEIN: Normal compression, augmentation. No visualized echogenic material on pastor scale. No de fects on color images. CEPHALIC VEIN: Normal compression, augmentation. No visualized echogenic material on pastor scale. No d efects on color images. OTHER: No other significant finding. CONTRALATERAL SUBCLAVIAN VEIN AND INTERNAL JUGULAR VEIN: Normal phasicity, compression and augmentation. No visualized echogenic material on pastor scale. No de fects on color images. IMPRESSION: NO EVIDENCE DVT OR SVT IN THE LEFT ARM. TECHNICAL DOCUMENTATION: JOB ID: [id number] [employer]- All Rights Reserved Reading location - IP/workstation name: [email or web address]
== END 2018-01-25 11:08 | disposition home or self-care (01) ==
LOC: ER 07:36
DX: L03.114 Cellulitis of left upper limb (principal); E78.00 Pure hypercholesterolemia, unspecified; Z96.643 Presence of artificial hip joint, bilateral
CPT/HCPCS: 93971; 99284

== ENCOUNTER 2018-02-23 07:50 | Emergency (ER) | payer MEDICARE, OTHER ==
[2018-02-23] MEDS ORDERED: CEPHALEXIN 500 MG CAPSULE PO ONE (08:26)
[2018-02-23] MEDS ORDERED: DIPH/PERTUSS(ACELL)/TETANUS VAC/PF 0.5 ML SYR (>=10YO) IM ONE (08:26)
--- NOTE | 2018-02-23 08:46 | ER Document Report ---
HPI - HPI Patient complains to provider of: Left forearm redness Onset: Other - 2 days Onset/Duration: Persistent Pain Level: 0 Context: Patient presents complaining of left forearm redness with swelling. Patient denies any fever. Patient has been cleaning up ER debris recently and does have some abrasions to bilateral upper extremities. Patient states he had a similar episode of erythema to left forearm several months ago and was placed on antibiotics for this. Patient states that he has symptoms very similar to that previous episode today. Associated Symptoms: Other - Left forearm erythema. denies: Fever Exacerbated by: Denies Relieved by: Denies Similar symptoms previously: Yes Recently seen / treated by doctor: No - ROS ROS below otherwise negative: Yes Systems Reviewed and Negative: Yes All other systems reviewed and negative - CONSTITUTIONAL Constitutional: DENIES: Fever - RESPIRATORY Respiratory: DENIES: Trouble Breathing, Coughing - REPRODUCTIVE Reproductive: DENIES: : - MUSCULOSKELETAL Musculoskeletal: REPORTS: Swelling - DERM Skin Color: Erythema Skin Problems: Abrasion Past Medical History - General Information source: Patient - Social History Smoking Status: Never Smoker Frequency of alcohol use: Occasional Drug Abuse: None Lives with: Family Family History: Malignancy Patient has suicidal ideation: No Patient has homicidal ideation: No - Past Medical History Cardiac Medical History: Reports: Hx Hypercholesterolemia Denies: Hx Coronary Artery Disease, Hx Heart Attack, Hx Hypertension Pulmonary Medical History: Denies: Hx Asthma, Hx Bronchitis, Hx COPD, Hx Pneumonia Neurological Medical History: Denies: Hx Cerebrovascular Accident, Hx Seizures Renal/ Medical History: Denies: Hx Peritoneal Dialysis Musculoskeletal Medical History: Reports Hx Arthritis - gout no current medication Psychiatric Medical History: Denies: Hx Depression Past Surgical History: Reports: Hx Abdominal Surgery - hernia repair, Hx Herniorrhaphy - Twice, Hx Orthopedic Surgery - hip replacement - Immunizations Hx Diphtheria, Pertussis, Tetanus Vaccination: Yes Hx Pneumococcal Vaccination: 03/15/14 Vertical Provider Document - CONSTITUTIONAL Agree With Documented VS: Yes Exam Limitations: No Limitations General Appearance: WD/WN, No Apparent Distress - INFECTION CONTROL TRAVEL OUTSIDE OF THE [place] IN LAST 30 DAYS: No - HEENT HEENT: Atraumatic, Normocephalic - NECK Neck: Normal Inspection, Supple - RESPIRATORY Respiratory: Breath Sounds Normal, No Respiratory Distress - CARDIOVASCULAR Cardiovascular: Regular Rate, Regular Rhythm Pulses: Normal: Radial - BACK Back: Normal Inspection - MUSCULOSKELETAL/EXTREMETIES Musculoskeletal/Extremeties: MAKATHY FROM, Non-Tender, Edema - Trace swelling to left forearm - NEURO Level of Consciousness: Awake, Alert, Appropriate - DERM Integumentary: Warm, Dry Notes: Mild erythema to left forearm. Patient with abrasion to left forearm and abrasion to right thumb. Scattered ecchymosis to bilateral upper extremities Course - Vital Signs Vital signs: Temp Pulse Resp BP Pulse Ox 97.4 F 77 14 128/64 H 97 02/23/18 07:55 02/23/18 07:55 02/23/18 07:55 02/23/18 07:55 02/23/18 07:55 Discharge - Discharge Clinical Impression: Abrasion Cellulitis Qualifiers: Site of cellulitis: extremity Site of cellulitis of extremity: upper extremity Laterality: left Qualified Code(s): L03.114 - Cellulitis of left upper limb Condition: Stable Disposition: HOME, SELF-CARE Instructions: Abrasions ([facility]), Cellulitis ([facility]), Cephalexin ([facility]), Tetanus Immunization Given ([facility]) Additional Instructions: Return immediately for any new or worsening symptoms Followup with your primary care provider, call tomorrow to make a followup appointment Follow-up with dermatology for recheck, call today for an appointment Prescriptions: Cephalexin Monohydrate [Keflex 500 mg Capsule] 500 mg PO Q6H 5 Days capsule Referrals: DYANA PETERS MD [Primary Care Provider] - Follow up as needed DERMATOLOGY [Provider Group] - Follow up as needed
[2018-02-23 09:20] VITALS: BP 132/70
== END 2018-02-23 09:20 | disposition home or self-care (01) ==
LOC: ER 07:50
DX: S40.812A Abrasion of left upper arm, initial encounter (principal); S40.811A Abrasion of right upper arm, initial encounter; L03.114 Cellulitis of left upper limb; M79.89 Other specified soft tissue disorders; W22.8XXA Striking against or struck by other objects, initial encounter
CPT/HCPCS: 99283; 90471; 90715; A9270

== ENCOUNTER 2018-03-19 11:18 | Emergency (ER) | payer MEDICARE, OTHER ==
[2018-03-19 11:30] VITALS: BP 114/67
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
[2018-03-19] MEDS ORDERED: DIPHENHYDRAMINE HCL 50 MG CAPSULE PO ONE (11:37)
[2018-03-19] MEDS ORDERED: FAMOTIDINE 20 MG TABLET PO ONE (11:37)
== END 2018-03-19 12:32 | disposition home or self-care (01) ==
LOC: ER 11:18
DX: T63.421A Toxic effect of venom of ants, accidental (unintentional), initial encounter (principal); L29.9 Pruritus, unspecified; R21 Rash and other nonspecific skin eruption
CPT/HCPCS: 99282; A9270 ×2

== ENCOUNTER 2018-12-29 10:16 | Emergency (ER) | payer MEDICARE, OTHER ==
[2018-12-29 11:32] LABS: ABSOLUTE EOSINOPHILS # (AUTO) 0.1 10^3/uL (0.0-0.6); ABSOLUTE LYMPHOCYTES (AUTO) 2.3 10^3/uL (0.5-4.7); ABSOLUTE MONOCYTES (AUTO) 0.7 10^3/uL (0.1-1.4); ABSOLUTE NEUT (AUTO) 3.9 10^3/uL (1.7-8.2); BASOPHILS % (AUTO) 0.4 % (0-2); EOSINOPHILS % (AUTO) 0.8 % (0-6); HEMATOCRIT 45.6 % (37.9-51.0); HEMOGLOBIN 15.2 g/dL (13.5-17.0); LYMPHOCYTES % (AUTO) 32.9 % (13-45); MEAN CORPUSCULAR HGB CONC 33.4 g/dL (32.0-36.0); MEAN CORPUSCULAR VOLUME 96 fl (80-97); MONOCYTES % (AUTO) 9.9 % (3-13); PLATELET COUNT 252 10^3/uL (150-450); RED BLOOD COUNT 4.76 10^6/uL (4.35-5.55); RED CELL DISTRIBUTION WIDTH 14.6 % (11.5-14.0); TOTAL CELLS COUNTED % (AUTO) 100 %; WHITE BLOOD COUNT 6.9 10^3/uL (4.0-10.5)
[2018-12-29 11:46] LABS: ALANINE AMINOTRANSFERASE 35 U/L (21-72); ALBUMIN 4.8 g/dL (3.5-5.0); ALKALINE PHOSPHATASE 77 U/L (38-126); ANION GAP 10 (5-19); ASPARTATE AMINO TRANSFERASE 36 U/L (17-59); BILIRUBIN,DIRECT 0.3 mg/dL (0.0-0.4); BILIRUBIN,TOTAL 1.2 mg/dL (0.2-1.3); BLOOD UREA NITROGEN 17 mg/dL (7-20); CALCIUM 10.3 mg/dL (8.4-10.2); CARBON DIOXIDE 25 mmol/L (22-30); CHLORIDE 105 mmol/L (98-107); CREATINE KINASE 256 U/L (55-170); GLUCOSE 94 mg/dL (75-110); POTASSIUM 4.2 mmol/L (3.6-5.0); TOTAL PROTEIN 7.7 g/dL (6.3-8.2)
--- NOTE | 2018-12-29 11:53 | RADIOLOGY REPORT (SQ) ---
EXAM DESCRIPTION: CHEST SINGLE VIEW COMPLETED DATE/TIME: 12/29/2018 11:42 am REASON FOR STUDY: chest pain COMPARISON: None. NUMBER OF VIEWS: One view. TECHNIQUE: Single frontal radiographic image of the chest acquired. LIMITATIONS: None. FINDINGS: LUNGS AND PLEURA: Stable appearance. MEDIASTINUM AND HILAR STRUCTURES: Stable heart size and mediastinal structures. HEART AND VASCULAR STRUCTURES: Stable appearance. SUPPORT DEVICES: Appropriate location without change. BONES: No acute findings. OTHER: No other significant finding. IMPRESSION: STABLE APPEARANCE OF THE CHEST. SUPPORT DEVICES UNCHANGED. TECHNICAL DOCUMENTATION: JOB ID: [id number] [employer]- All Rights Reserved Reading location - IP/workstation name: [email or web address]
[2018-12-29 12:00] LABS: CREATINE KINASE MB 3.18 ng/mL (<4.55)
--- NOTE | 2018-12-29 12:02 | ER Document Report ---
ED General - General Chief Complaint: Dizziness Stated Complaint: DIZZY Time Seen by Provider: 12/29/18 11:10 Primary Care Provider: DYANA PETERS MD [Primary Care Provider] - Follow up as needed TRAVEL OUTSIDE OF THE [place] IN LAST 30 DAYS: No - HPI Notes: Patient is a 78-year-old male who presents to the emergency department for evaluation of chest pain and difficulty breathing. He states that he woke up at about 1:30 in the morning. He described a substernal pain that did not radiate. He states it feels like an ache. He felt short of breath. He admits he does have a history of sleep apnea. He has been unable to tolerate CPAP, has not had one for about a year. He states he got up and got a shower. He felt short of breath at that point as well. He states he has had 2 episodes of this chest pain, that lasted about a minute. He really cannot describe it for me. He denies this sensation that his breathing got worse during these episodes. He states he felt somewhat dizzy as well. Has been taking medications as prescribed. Again he is pain-free at this time. He states he does feel mildly dyspneic at rest. - Related Data Allergies/Adverse Reactions: No Known Drug Allergies Allergy (Verified 03/19/18 11:20) Fire Ants Allergy (Severe, Uncoded 03/19/18 11:20) Syncope Past Medical History - General Information source: Patient - Social History Smoking Status: Former Smoker - Quit in 1971 Frequency of alcohol use: Heavy - Drinks 6-12 beers daily for several decades Drug Abuse: None Family History: Malignancy - Past Medical History Cardiac Medical History: Reports: Hx Hypercholesterolemia, Hx Hypertension, Other - SVT Denies: Hx Coronary Artery Disease, Hx Heart Attack Pulmonary Medical History: Denies: Hx Asthma, Hx Bronchitis, Hx COPD, Hx Pneumonia Neurological Medical History: Denies: Hx Cerebrovascular Accident, Hx Seizures Renal/ Medical History: Denies: Hx Peritoneal Dialysis Musculoskeletal Medical History: Reports Hx Arthritis - gout no current medication Psychiatric Medical History: Denies: Hx Depression Past Surgical History: Reports: Hx Abdominal Surgery - hernia repair, Hx Cholecystectomy, Hx Herniorrhaphy - Twice, Hx Orthopedic Surgery - hip replacement - Immunizations Hx Diphtheria, Pertussis, Tetanus Vaccination: Yes Hx Pneumococcal Vaccination: 03/15/14 Review of Systems - Review of Systems Constitutional: No symptoms reported EENT: No symptoms reported Cardiovascular: See HPI Respiratory: See HPI Gastrointestinal: No symptoms reported Genitourinary: No symptoms reported Musculoskeletal: No symptoms reported Skin: No symptoms reported Neurological/Psychological: No symptoms reported Physical Exam - Vital signs Vitals: Temp Pulse Resp BP Pulse Ox 98.1 F 82 16 141/60 H 99 12/29/18 10:30 12/29/18 10:30 12/29/18 10:30 12/29/18 10:30 12/29/18 10:30 - Notes Notes: Vital signs reviewed, please refer to chart. Head is normocephalic, atraumatic. Pupils equal round, reactive to light. Neck is supple without meningismus. Heart is regular rate and rhythm. Lungs are clear to auscultation bilaterally. Abdomen is soft, nontender, normoactive bowel sounds throughout. Extremities without cyanosis, clubbing. Posterior calves are nontender. Peripheral pulses are equal. Skin is warm and dry. Patient is awake, alert, neurological exam is nonfocal. Course - Re-evaluation Re-evalutation: 12/29/18 12:02 Patient presents emergency department for evaluation. Laboratory investigations obtained, EKG, monitor placed. Patient is chest pain-free at this time. He is 100% on room air at rest. Laboratory investigations are pending. EKG shows no acute changes. We will continue to follow. 12/29/18 14:42 Patient's laboratory investigations are entirely unremarkable. His EKG shows no significant changes. Patient had no chest pain while here. He did occasionally feel dyspneic. On further questioning the patient admits that he has felt like this intermittently since childhood. He is oxygenating well, lungs are clear, normal respiratory rate. At this point I do not have a clear etiology for his symptoms. I recommend that he follow-up closely with his primary care provider. I explained to him that I cannot rule out coronary artery disease, and he should have a stress test or other tests for evaluation of this at his and his primary care physician's discretion. He voiced understanding to this. Otherwise he is told that if he has any worsening or new concerning symptoms of any sort, he should return immediately to the emergency department for reevaluation. - Vital Signs Vital signs: Temp Pulse Resp BP Pulse Ox 98.1 F 82 16 141/60 H 99 12/29/18 10:30 12/29/18 10:30 12/29/18 10:30 12/29/18 10:30 12/29/18 10:30 - Laboratory Result Diagrams: 12/29/18 11:15 12/29/18 11:15 Laboratory results interpreted by me: 12/29/18 12/29/18 11:15 11:15 RDW 14.6 H Calcium 10.3 H Creatine Kinase 256 H - Diagnostic Test Radiology reviewed: Reports reviewed Radiology results interpreted by me: 12/29/18 12:03 Chest X-Ray 12/29/18 11:22 IMPRESSION: STABLE APPEARANCE OF THE CHEST. SUPPORT DEVICES UNCHANGED. - EKG Interpretation by Me Additional EKG results interpreted by me: 12/29/18 12:03 Sinus mechanism with a rate of 72 bpm. PAC. Left axis deviation. Nonspecific ST changes, but no acute changes concerning for ischemia or infarction. Discharge - Discharge Clinical Impression: Chest pain Qualifiers: Chest pain type: unspecified Qualified Code(s): R07.9 - Chest pain, unspecified Dyspnea Qualifiers: Dyspnea type: shortness of breath Qualified Code(s): R06.02 - Shortness of breath; R06.00 - Dyspnea, unspecified; R06.01 - Orthopnea Condition: Stable Disposition: HOME, SELF-CARE Instructions: Chest Pain of Unclear Cause ([facility]), Dyspnea, Nonspecific ([facility]) Additional Instructions: No clear cause was found for your symptoms today. You need to follow-up with your primary care provider next week. If you develop worsening or new concerning symptoms of any sort, return immediately to the emergency department for reevaluation. Referrals: DYANA PETERS MD [Primary Care Provider] - Follow up as needed
[2018-12-29 12:03] LABS: TROPONIN I < 0.012 ng/mL
[2018-12-29 15:17] VITALS: BP 129/78
--- NOTE | 2018-12-29 23:07 | EKG REPORT ---
SEVERITY:- ABNORMAL ECG - SINUS RHYTHM ATRIAL PREMATURE COMPLEX LEFT AXIS DEVIATION LATERAL INFARCT, OLD ANTERIOR INFARCT, OLD : Confirmed by: Honey Ledezma 29-Dec-2018 23:06:10
== END 2018-12-29 15:25 | disposition home or self-care (01) ==
LOC: ER 10:16
DX: R07.9 Chest pain, unspecified (principal); R06.02 Shortness of breath; R42 Dizziness and giddiness; R06.00 Dyspnea, unspecified; Z87.891 Personal history of nicotine dependence; I10 Essential (primary) hypertension
CPT/HCPCS: 36415; 71045; 80053; 82550; 82553; 83690; 83880; 84484; 85025; 93005; 93010; 99284

== ENCOUNTER → 2019-01-18 | Outpatient (CLI) | payer MEDICARE, OTHER ==
[~2019-01-18] MED LIST: AMINOPHYLLINE INJ/PF 250 MG/10 ML SDV IV ONE; REGADENOSON INJ 0.4 MG/5 ML DISP.SYRIN IV ONE
--- NOTE | 2019-01-18 13:22 | DRAGON STRESS TEST REPORT ---
INTRAVENOUS LEXISCAN CARDIOLITE STRESS TEST USING SINGLE PHOTON EMMISION COMPUTERIZED TOMOGRAPHIC. DATE OF PROCEDURE: January 18, 2019, INDICATION : Chest pain CARDIAC RISK FACTORS: Hypertension, dyslipidemia RESTING EKG: Sinus rhythm without any baseline ST-T wave changes STRESS EKG: No significant ST segment changes noted with LexiScan bolus REASON FOR TERMINATION: Protocol. PROCEDURE REPORT: Baseline heart rate 65 beats per minute with blood pressure of 140/77. Patient had no significant complaints. Patient was bolused with Lexiscan 0.4 mg intravenously followed by saline bolus. Heart rate at 2 minutes post bolus 96 with a blood pressure of 151/87. 3 minutes post bolus heart rate 78 with blood pressure of 144/73. No significant EKG changes were noted. Patient had no significant complaints during the procedure or postprocedure. CONCLUSIONS: Normal EKG and hemodynamic response to IV LexiScan. NUCLEAR DATA: At rest the patient was given 10.94 millicuries of technetium 99 sestamibi injected intravenously. As per protocol rest gated SPECT images were obtained. On day of stress test, the patient was given intravenous LexiScan at a dose of 0.4 mg in 5 mL intravenously, followed by flush with normal saline. Subsequently the stress dose of 33.0 millicuries of technetium 99 sestamibi was injected intravenously. As per protocol stress gated images were obtained. NUCLEAR INTERPRETATION: Both raw and processed data were used for interpretation. Visual, qualitative, computer-generated quantitative data was used. There was good myocardial uptake of technetium compound. Motion artifact and soft tissue attenuations were noted. Increased visceral uptake was noted. No definitive areas of transient perfusion defect noted, No definitive areas of fixed perfusion defect or scars noted. Mild decreased uptake of relatively fixed nature noted in the LV apex consistent with normal apical thinning. However a prior area of myocardial infarction cannot be entirely ruled out. EKG gated imaging showed LV EF at 56 %, rest and stress gated EF similar visually. T. I D. ratio was 0.92. Lung heart ratio noted to be within normal limits 0.34. No significant extracardiac and abnormal radiotracer activities were noted. RV free wall uptake was noted to be WNL. IMPRESSION: Also refer to comments under nuclear interpretation. Also test results needs to be interpreted in the context of pretest probability. 1. No definitive areas of transient perfusion defect noted. 2. There is no definitive scintigraphic evidence of myocardial infarction/scar. Mild decreased uptake of relatively fixed nature noted in the LV apex consistent with normal apical thinning. However a prior area of myocardial infarction cannot be entirely ruled out. 3. EKG gated imaging shows left ventricular ejection fraction of approx. 56 %. 4. Clinical correlation requested as worse disease and or balanced ischemia could be missed. In approximately 10% of the cases Lexiscan may not cause adequate vasodilatory stress. RECOMMENDATIONS: Aggressive risk factor modification and medical management. Further evaluation may be needed if continued symptoms or other high risk indicators are noted on clinical evaluation. Close cardiology follow-up is also recommended. Clinical correlation with echocardiogram derived ejection fraction. Inability to exercise by itself can lead to increased cardiovascular event risks. Consider cardiology consultation and or follow-up if clinically indicated. I am available for cardiology evaluation and consultation if requested by the pelt dropper, unless patient already has a film coater. Dr. Cherry Ledzema. MRCP Board certified in cardiology and sleep medicine. Board certified in nuclear cardiology, adult echocardiography. MICHELE
== END ==
LOC: RAD 08:17
PROVIDERS: ATTEND Family Medicine
DX: R07.89 Other chest pain (principal); I10 Essential (primary) hypertension; E78.5 Hyperlipidemia, unspecified
CPT/HCPCS: 93017; 78452; A9500; J2785; J0280; Q9969

== ENCOUNTER 2019-05-13 09:27 | Emergency (ER) | payer MEDICARE, OTHER ==
[2019-05-13 10:22] LABS: ABSOLUTE BASOPHILS # (AUTO) 0.1 10^3/uL (0.0-0.2); ABSOLUTE EOSINOPHILS # (AUTO) 0.1 10^3/uL (0.0-0.6); ABSOLUTE LYMPHOCYTES (AUTO) 1.7 10^3/uL (0.5-4.7); ABSOLUTE MONOCYTES (AUTO) 0.4 10^3/uL (0.1-1.4); ABSOLUTE NEUT (AUTO) 2.8 10^3/uL (1.7-8.2); HEMATOCRIT 41.5 % (37.9-51.0); HEMOGLOBIN 14.1 g/dL (13.5-17.0); LYMPHOCYTES % (AUTO) 33.4 % (13-45); MEAN CORPUSCULAR HEMOGLOBIN 32.2 pg (27.0-33.4); MEAN CORPUSCULAR VOLUME 95 fl (80-97); MONOCYTES % (AUTO) 8.6 % (3-13); PLATELET COUNT 241 10^3/uL (150-450); RED BLOOD COUNT 4.38 10^6/uL (4.35-5.55); RED CELL DISTRIBUTION WIDTH 14.2 % (11.5-14.0); TOTAL CELLS COUNTED % (AUTO) 100 %
[2019-05-13 10:24] LABS: ALBUMIN 3.9 g/dL (3.5-5.0); ALKALINE PHOSPHATASE 70 U/L (38-126); ANION GAP 12 (5-19); ASPARTATE AMINO TRANSFERASE 34 U/L (17-59); BILIRUBIN,DIRECT 0.1 mg/dL (0.0-0.4); BILIRUBIN,TOTAL 1.1 mg/dL (0.2-1.3); BLOOD UREA NITROGEN 22 mg/dL (7-20); CALCIUM 9.6 mg/dL (8.4-10.2); CARBON DIOXIDE 21 mmol/L (22-30); CHLORIDE 106 mmol/L (98-107); CREATINE KINASE 178 U/L (55-170); GLUCOSE 141 mg/dL (75-110); POTASSIUM 4.1 mmol/L (3.6-5.0); TOTAL PROTEIN 6.8 g/dL (6.3-8.2)
[2019-05-13 10:37] LABS: TROPONIN I < 0.012 ng/mL
--- NOTE | 2019-05-13 11:22 | RADIOLOGY REPORT (SQ) ---
EXAM DESCRIPTION: CHEST 2 VIEWS COMPLETED DATE/TIME: 05/13/2019 10:59 am REASON FOR STUDY: svt COMPARISON: 12/29/2018 EXAM PARAMETERS: NUMBER OF VIEWS: two views TECHNIQUE: Digital Frontal and Lateral radiographic views of the chest acquired. RADIATION DOSE: NA LIMITATIONS: none FINDINGS: LUNGS AND PLEURA: No opacities, masses or pneumothorax. No pleural effusion. MEDIASTINUM AND HILAR STRUCTURES: No masses or contour abnormalities. HEART AND VASCULAR STRUCTURES: Heart normal size. No evidence for failure. BONES: No acute findings. HARDWARE: None in the chest. OTHER: No other significant finding. IMPRESSION: NO ACUTE RADIOGRAPHIC FINDING IN THE CHEST. TECHNICAL DOCUMENTATION: JOB ID: [id number] [employer]- All Rights Reserved Reading location - IP/workstation name: [email or web address]
[2019-05-13] MEDS ORDERED: NORMAL SALINE 1000 ML 1,000 ML IV ONE (11:39)
--- NOTE | 2019-05-13 11:55 | ER Document Report ---
ED General - General Chief Complaint: Arrhythmia Stated Complaint: SHORTNESS OF BREATH,DIZZINESS Time Seen by Provider: 05/13/19 11:38 Primary Care Provider: DYANA PETERS MD [Primary Care Provider] - Follow up as needed Notes: 78-year-old male with a history of SVT presents the emergency department via EMS. States that he was making the bed, he bent down to fix the sheet and when he stood up he was lightheaded and noticed that his heart rate had gone up, felt like he was going to pass out. Patient sat down and tried to wait his out but his called 911. EMS cardioverted him with 12 mg of adenosine. Patient states he now feels great. He has a history of the same in the past, did not try any vagal maneuvers. Patient states he has already spoken with Dr. Elliott. States he did not completely understand what Dr. Elliott said he should do. Has not missed his doses of metoprolol, took last dose last evening, is not due for another dose until this evening. TRAVEL OUTSIDE OF THE [place] IN LAST 30 DAYS: No - Related Data Allergies/Adverse Reactions: No Known Drug Allergies Allergy (Verified 03/19/18 11:20) Fire Ants Allergy (Severe, Uncoded 03/19/18 11:20) Syncope Past Medical History - General Information source: Patient - Social History Smoking Status: Current Every Day Smoker Frequency of alcohol use: Social Family History: Malignancy Patient has suicidal ideation: No Patient has homicidal ideation: No - Past Medical History Cardiac Medical History: Reports: Hx Hypercholesterolemia, Hx Hypertension Denies: Hx Coronary Artery Disease, Hx Heart Attack Pulmonary Medical History: Denies: Hx Asthma, Hx Bronchitis, Hx COPD, Hx Pneumonia Neurological Medical History: Denies: Hx Cerebrovascular Accident, Hx Seizures Renal/ Medical History: Denies: Hx Peritoneal Dialysis Musculoskeletal Medical History: Reports Hx Arthritis - gout no current medication Psychiatric Medical History: Denies: Hx Depression Past Surgical History: Reports: Hx Abdominal Surgery - hernia repair, Hx Cholecystectomy, Hx Herniorrhaphy - Twice, Hx Orthopedic Surgery - hip replacement - Immunizations Hx Diphtheria, Pertussis, Tetanus Vaccination: Yes Hx Pneumococcal Vaccination: 03/15/14 Review of Systems - Review of Systems Constitutional: See HPI, Weakness Cardiovascular: See HPI -: Yes All other systems reviewed and negative Physical Exam - Vital signs Vitals: Temp Pulse Resp BP Pulse Ox 98.2 F 99 21 H 140/75 H 100 05/13/19 09:37 05/13/19 09:37 05/13/19 09:37 05/13/19 09:37 05/13/19 09:37 Interpretation: Tachypneic - Notes Notes: GENERAL: Alert, interacts well. No acute distress. HEAD: Normocephalic, atraumatic EYES: Pupils equal, round and reactive to light, extraocular movements intact. ENT: Oral mucosa moist, tongue midline. NECK: Full range of motion, supple, trachea midline. LUNGS: Clear to auscultation bilaterally, no wheezes, rales or rhonchi, no respiratory distress. HEART: Regular rate and rhythm, no murmurs, gallops, rubs. ABDOMEN: Soft, nontender, nondistended, bowel sounds present in all 4 quadrants. EXTREMITIES: Moves all 4 extremities spontaneously, no edema, radial and dorsalis pedis pulses 2/4 bilaterally. No cyanosis. NEUROLOGICAL: Alert and oriented x3, normal speech. PSYCH: Normal mood, normal affect. SKIN: Warm, Dry, normal turgor, no rashes or lesions noted. Course - Re-evaluation Re-evalutation: 05/13/19 13:35 CBC unremarkable, CMP shows slightly bumped BUN and creatinine as well as a low CO2, this dehydration can certainly contribute to him going into SVT, patient w as given a liter fluid, troponin negative, chest x-ray shows no acute process, EKG is nonischemic. EMS did an excellent job fixing the patient before even got here, they treated him with 12 of adenosine. Patient has had no further ectopy or symptoms while here, Dr. Elliott graciously saw the patient in the emergency department, recommends increasing metoprolol to twice a day and he will follow-up with the patient as an outpatient in the next 1 to 2 weeks and likely get a 30-day Holter monitor. Patient is agreeable to this plan and will be discharged to home. - Vital Signs Vital signs: Temp Pulse Resp BP Pulse Ox 98.2 F 99 21 H 140/75 H 100 05/13/19 09:37 05/13/19 09:37 05/13/19 09:37 05/13/19 09:37 05/13/19 09:37 - Laboratory Result Diagrams: 05/13/19 09:46 05/13/19 09:46 Laboratory results interpreted by me: 05/13/19 05/13/19 09:46 09:46 RDW 14.2 H Carbon Dioxide 21 L BUN 22 H Creatinine 1.40 H Est GFR ( Amer) 59 L Est GFR (MDRD) Non-Af 49 L Glucose 141 H Creatine Kinase 178 H - EKG Interpretation by Me Additional EKG results interpreted by me: 05/13/19 11:58 EKG shows sinus rhythm at a rate of 96, left axis deviation, normal intervals, poor R wave progression, no ST segment elevations or depressions, no T wave inversions per my interpretation. Discharge - Discharge Clinical Impression: SVT (supraventricular tachycardia), Dehydration Condition: Stable Disposition: HOME, SELF-CARE Additional Instructions: Please start taking your metoprolol twice a day per Dr. Elliott's instructions. Please follow-up with him as an outpatient in the next 1 to 2 weeks. If you start having SVT again please bear down like you are trying to have a bowel movement, this may help to stop your SVT. If it does not stop please call 911. Referrals: DYANA PETERS MD [Primary Care Provider] - Follow up as needed
--- NOTE | 2019-05-13 12:04 | EKG REPORT ---
SEVERITY:- OTHERWISE NORMAL ECG - SINUS RHYTHM BORDERLINE LEFT AXIS DEVIATION : Confirmed by: Natasha Elliott MD 13-May-2019 12:02:34
[2019-05-13 13:46] VITALS: BP 122/72
== END 2019-05-13 13:51 | disposition home or self-care (01) ==
LOC: ER 09:27
DX: I47.1 Supraventricular tachycardia (principal); E86.0 Dehydration; R42 Dizziness and giddiness; R06.02 Shortness of breath; E78.00 Pure hypercholesterolemia, unspecified; I10 Essential (primary) hypertension; Z90.49 Acquired absence of other specified parts of digestive tract
CPT/HCPCS: 93005; 99285; 96360; 36415; 82553; 82550; 85025; 80053; 84484; 71046; 93010; J7030

== ENCOUNTER 2019-05-19 07:14 | Emergency (ER) | payer MEDICARE, OTHER ==
--- NOTE | 2019-05-19 07:42 | EKG REPORT ---
SEVERITY:- ABNORMAL ECG - SINUS RHYTHM BORDERLINE LEFT AXIS DEVIATION CONSIDER OLD ANTEROSEPTAL PR : Confirmed by: Efra Mendosa MD 19-May-2019 07:41:47
[2019-05-19 07:53] LABS: ALBUMIN 4.5 g/dL (3.5-5.0); ALKALINE PHOSPHATASE 72 U/L (38-126); ANION GAP 15 (5-19); ASPARTATE AMINO TRANSFERASE 37 U/L (17-59); BILIRUBIN,DIRECT 0.2 mg/dL (0.0-0.4); BLOOD UREA NITROGEN 22 mg/dL (7-20); CALCIUM 9.9 mg/dL (8.4-10.2); CARBON DIOXIDE 24 mmol/L (22-30); CHLORIDE 102 mmol/L (98-107); GLUCOSE 123 mg/dL (75-110); POTASSIUM 4.2 mmol/L (3.6-5.0); TOTAL PROTEIN 7.7 g/dL (6.3-8.2)
[2019-05-19 08:02] LABS: ABSOLUTE BASOPHILS # (AUTO) 0.1 10^3/uL (0.0-0.2); ABSOLUTE EOSINOPHILS # (AUTO) 0.2 10^3/uL (0.0-0.6); ABSOLUTE LYMPHOCYTES (AUTO) 2.7 10^3/uL (0.5-4.7); ABSOLUTE MONOCYTES (AUTO) 0.7 10^3/uL (0.1-1.4); ABSOLUTE NEUT (AUTO) 3.5 10^3/uL (1.7-8.2); HEMOGLOBIN 14.9 g/dL (13.5-17.0); INTERNATIONAL RATION (INR) 0.94; PROTHROMBIN TIME 12.6 SEC (11.4-15.4); TOTAL CELLS COUNTED % (AUTO) 100 %
[2019-05-19 08:14] LABS: BASOPHILS % (AUTO) 1.2 % (0-2); EOSINOPHILS % (AUTO) 3.2 % (0-6); HEMATOCRIT 43.7 % (37.9-51.0); LYMPHOCYTES % (AUTO) 37.5 % (13-45); MEAN CORPUSCULAR HEMOGLOBIN 32.2 pg (27.0-33.4); MEAN CORPUSCULAR VOLUME 95 fl (80-97); MONOCYTES % (AUTO) 9.8 % (3-13); PLATELET COUNT 237 10^3/uL (150-450); RED BLOOD COUNT 4.62 10^6/uL (4.35-5.55); RED CELL DISTRIBUTION WIDTH 14.1 % (11.5-14.0); SEGMENTED NEUTROPHILS % (AUTO) 48.3 % (42-78); WHITE BLOOD COUNT 7.3 10^3/uL (4.0-10.5)
--- NOTE | 2019-05-19 10:03 | RADIOLOGY REPORT (SQ) ---
EXAM DESCRIPTION: CHEST 2 VIEWS COMPLETED DATE/TIME: 05/19/2019 9:52 am REASON FOR STUDY: weakness COMPARISON: 05/13/2019 TECHNIQUE: Frontal and lateral radiographic views of the chest acquired. NUMBER OF VIEWS: Two view. LIMITATIONS: None. FINDINGS: LUNGS AND PLEURA: No opacities, masses or pneumothorax. No pleural effusion. MEDIASTINUM AND HILAR STRUCTURES: No masses or contour abnormalities. HEART AND VASCULAR STRUCTURES: Heart normal size. No evidence for failure. BONES: No acute findings. HARDWARE: None in the chest. OTHER: No other significant finding. IMPRESSION: NO SIGNIFICANT RADIOGRAPHIC FINDING IN THE CHEST. TECHNICAL DOCUMENTATION: JOB ID: [id number] [email or web address]- All Rights Reserved Reading location - IP/workstation name: [email or web address]
[2019-05-19 13:38] VITALS: BP 139/89
--- NOTE | 2019-05-19 13:44 | ER Document Report ---
ED General - General Chief Complaint: General Weakness Stated Complaint: WEAK/NEAR SYNCOPE Time Seen by Provider: 05/19/19 10:13 Primary Care Provider: DYANA PETERS MD [Primary Care Provider] - Follow up as needed Mode of Arrival: Medic Information source: Patient Notes: 78-year-old male patient presenting to the emergency department via EMS for concern for elevated heart rate. Patient reports he has been having recurrent SVT. Patient states he has a Holter monitor in place and sees Dr. Elliott. Patient reports he had an episode last week and at that point Dr. Eden increase his metoprolol from 25 mg daily to 25 mg twice daily. He states that when EMS a rrived this morning his heart rate had already started to come down so they did not have to give him any medications. TRAVEL OUTSIDE OF THE [place] IN LAST 30 DAYS: No - Related Data Allergies/Adverse Reactions: No Known Drug Allergies Allergy (Verified 03/19/18 11:20) Fire Ants Allergy (Severe, Uncoded 03/19/18 11:20) Syncope Home Medications: pravastatin. nitro. metoprolol Past Medical History - General Information source: Patient - Social History Smoking Status: Never Smoker Frequency of alcohol use: None Drug Abuse: None Lives with: Spouse/Significant other Family History: Malignancy Patient has suicidal ideation: No Patient has homicidal ideation: No - Past Medical History Cardiac Medical History: Reports: Hx Hypercholesterolemia, Hx Hypertension, Other - SVT Denies: Hx Coronary Artery Disease, Hx Heart Attack Pulmonary Medical History: Denies: Hx Asthma, Hx Bronchitis, Hx COPD, Hx Pneumonia Neurological Medical History: Denies: Hx Cerebrovascular Accident, Hx Seizures Renal/ Medical History: Denies: Hx Peritoneal Dialysis Musculoskeletal Medical History: Reports Hx Arthritis - gout no current medication Psychiatric Medical History: Denies: Hx Depression Past Surgical History: Reports: Hx Abdominal Surgery - hernia repair, Hx Cholecystectomy, Hx Herniorrhaphy - Twice, Hx Orthopedic Surgery - hip replacement - Immunizations Hx Diphtheria, Pertussis, Tetanus Vaccination: Yes Hx Pneumococcal Vaccination: 03/15/14 Review of Systems - Review of Systems Constitutional: No symptoms reported EENT: No symptoms reported Cardiovascular: Heart racing - Now resolved Respiratory: No symptoms reported Gastrointestinal: No symptoms reported Genitourinary: No symptoms reported Male Genitourinary: No symptoms reported Musculoskeletal: No symptoms reported Skin: No symptoms reported Hematologic/Lymphatic: No symptoms reported Neurological/Psychological: No symptoms reported Physical Exam - Vital signs Vitals: Resp 17 05/19/19 07:21 - Notes Notes: PHYSICAL EXAMINATION: GENERAL: Well-appearing, well-nourished and in no acute distress. HEAD: Atraumatic, normocephalic. EYES: Pupils equal round and reactive to light, extraocular movements intact, sclera anicteric, conjunctiva are normal. ENT: Nares patent, oropharynx clear without exudates. Moist mucous membranes. NECK: Normal range of motion, supple without lymphadenopathy LUNGS: Breath sounds clear to auscultation bilaterally and equal. No wheezes rales or rhonchi. HEART: Regular rate and rhythm without murmurs ABDOMEN: Soft, nontender, nondistended abdomen. No guarding, no rebound. No masses appreciated. Musculoskeletal: Normal range of motion, no pitting or edema. No cyanosis. NEUROLOGICAL: Cranial nerves grossly intact. Normal speech, normal gait. Normal sensory, motor exams PSYCH: Normal mood, normal affect. SKIN: Warm, Dry, normal turgor, no rashes or lesions noted. Course - Re-evaluation Re-evalutation: Laboratory 05/19/19 05/19/19 05/19/19 06:45 06:45 06:45 WBC 7.3 RBC 4.62 Hgb 14.9 Hct 43.7 MCV 95 MCH 32.2 MCHC 34.0 RDW 14.1 H Plt Count 237 Lymph % (Auto) 37.5 [place] % (Auto) 9.8 Eos % (Auto) 3.2 Baso % (Auto) 1.2 Absolute Neuts (auto) 3.5 Absolute Lymphs (auto) 2.7 Absolute Monos (auto) 0.7 Absolute Eos (auto) 0.2 Absolute Basos (auto) 0.1 Seg Neutrophils % 48.3 PT 12.6 INR 0.94 Sodium 140.9 Potassium 4.2 Chloride 102 Carbon Dioxide 24 Anion Gap 15 BUN 22 H Creatinine 1.24 Est GFR ( Amer) > 60 Est GFR (MDRD) Non-Af 56 L Glucose 123 H Calcium 9.9 Total Bilirubin 1.0 Direct Bilirubin 0.2 Neonat Total Bilirubin Not Reportable Neonat Direct Bilirubin Not Reportable Neonat Indirect Bili Not Reportable AST 37 ALT 21 Alkaline Phosphatase 72 Creatine Kinase Troponin I Total Protein 7.7 Albumin 4.5 05/19/19 05/19/19 06:45 06:45 WBC RBC Hgb Hct MCV MCH MCHC RDW Plt Count Lymph % (Auto) [place] % (Auto) Eos % (Auto) Baso % (Auto) Absolute Neuts (auto) Absolute Lymphs (auto) Absolute Monos (auto) Absolute Eos (auto) Absolute Basos (auto) Seg Neutrophils % PT INR Sodium Potassium Chloride Carbon Dioxide Anion Gap BUN Creatinine Est GFR ( Amer) Est GFR (MDRD) Non-Af Glucose Calcium Total Bilirubin Direct Bilirubin Neonat Total Bilirubin Neonat Direct Bilirubin Neonat Indirect Bili AST ALT Alkaline Phosphatase Creatine Kinase 218 H Troponin I < 0.012 Total Protein Albumin Chest X-Ray 05/19/19 07:35 IMPRESSION: NO SIGNIFICANT RADIOGRAPHIC FINDING IN THE CHEST. 05/19/19 13:56 EKG shows a sinus rhythm, rate of 75, QTc 477, borderline left axis deviation, no ST segment elevations or depressions to suggest ischemia. Troponin is negative. Chest x-ray clear. Labs otherwise unremarkable. Called and spoke with Dr. Elliott, Dr. He recommends increasing the metoprolol to 50 mg twice daily from 25 mg twice daily. Will discharge patient home with plans to follow-up with Dr. Elliott. Patient and spouse verbalized understanding and agreement with plan. - Vital Signs Vital signs: Temp Pulse Resp BP Pulse Ox 98.5 F 80 18 139/89 H 97 05/19/19 07:36 05/19/19 07:36 05/19/19 13:01 05/19/19 13:00 05/19/19 13:01 - Laboratory Result Diagrams: 05/19/19 06:45 05/19/19 06:45 Laboratory results interpreted by me: 05/19/19 05/19/19 05/19/19 06:45 06:45 06:45 RDW 14.1 H BUN 22 H Est GFR (MDRD) Non-Af 56 L Glucose 123 H Creatine Kinase 218 H Discharge - Discharge Clinical Impression: Tachycardia Condition: Stable Disposition: HOME, SELF-CARE Additional Instructions: I called and spoke with your tack maker, Dr. Elliott while I was in the room with you. He recommends increasing her metoprolol to 50 mg twice daily. Please follow-up with him, call Tuesday to schedule an appointment, let the office staff know that you are in the emergency department and that we consulted Dr. He and he wants to see you. Please return to the emergency department for any new or worsening symptoms. Prescriptions: Metoprolol Tartrate [Lopressor 25 mg Tablet] 50 mg PO Q12 #60 tab Referrals: DYANA PETERS MD [Primary Care Provider] - Follow up as needed
== END 2019-05-19 14:08 | disposition home or self-care (01) ==
LOC: ER 07:14
DX: I47.1 Supraventricular tachycardia (principal); E78.00 Pure hypercholesterolemia, unspecified; I10 Essential (primary) hypertension; Z79.899 Other long term (current) drug therapy; Z91.038 Other insect allergy status
CPT/HCPCS: 36415; 71046; 80053; 82550; 84484; 85025; 85610; 93005; 93010; 99285